=== PATIENT | female | born 1960 | race Caucasian/White ===

== ENCOUNTER 2017-11-15 10:43 | Observation (INO) | payer BC, SELFPAY ==
[2017-11-15] VITALS (9 sets, daily range): BP systolic 120–137; BP diastolic 69–87; PULSE 67–90; RESP 14–25; TEMP 36.4–36.8; O2SAT 97–99; BMI 22.4; BMI 22.5
--- NOTE | 2017-11-15 11:01 | CT_ITS ---
STUDY: CT BRAIN WITHOUT CONTRAST REASON FOR EXAM: Female, 57 years old. DIZZINESS AND VOMITING RADIATION DOSAGE (If Supplied By Facility): CTDIvol = ( 44.99 ) mGy, DLP = ( 762.36 ) mGycm TECHNIQUE: Transaxial CT imaging of the brain was performed without administration of intravenous contrast material. Individualized dose optimization techniques were used for this CT. COMPARISON: None. FINDINGS: Normal soft tissue structures. Normal calvarium. Normal size ventricles and extra-axial spaces for the patient's age. There are areas of decreased attenuation within the white matter tracts of the supratentorial brain, consistent with microvascular disease changes. Normal basal ganglia and thalami. Normal brainstem. Normal cerebellum. There is no intracranial hemorrhage. There are no findings of an acute ischemic infarction. Normal visualized paranasal sinuses. CT/Brain/Head without Contrast IMPRESSION: No acute intracranial abnormality. Electronically Signed: Devyn Newby MD at 11:52 EST Tel , Service support ,
--- NOTE | 2017-11-15 11:02 | EKG12_ITS ---
Test Reason : SYNCOPE Blood Pressure : / mmHG Vent. Rate : 072 BPM Atrial Rate : 072 BPM P-R Int : 140 ms QRS Dur : 090 ms QT Int : 436 ms P-R-T Axes : 064 076 069 degrees QTc Int : 477 ms Normal sinus rhythm Nonspecific ST segment abnormality Confirmed by ANDIE DWYER, DELMAR ([id number]), editor school photograph KONRAD MOTA ([id number]) on 11/17/2017 1:31:58 PM Referred By: MISTI
--- NOTE | 2017-11-15 11:05 | ED.DCSUM_ITS ---
- ER Visit Summary Date of Service: 11/15/17 Chief Complaint: Vertigo History of Present Illness: The patient is a 57 F presenting with vertigo. She states that when she woke this morning she had a spinning sensation. When she turned over in bed and stood up it worsened. She feels off balance. She has nausea. She denies any numbness or weakness. Denies any vision or speech changes. Denies chest pain or shortness of breath. Denies fever. She denies other complaints. Physical Examination: Vitals are stable. Patient is afebrile. Alert no acute distress. HEENT exam is unremarkable. Neck is supple. Lungs are clear and equal bilaterally. Heart is regular rate and rhythm. Abdomen is soft nontender nondistended. Extremities are unremarkable. Skin is warm and dry. No focal neurologic deficit. Remainder of exam is unremarkable. Emergency Department Course and Treatment: She was given IV fluids, Zofran, meclizine. EKG is sinus rhythm rate of 72. CT head shows no acute process. CBC, chemistries unremarkable other than potassium 3.3, glucose 148. Troponin is negative. She continues to have vertigo. She is given Valium. She has some improvement but is still unable to sit or stand. Discussed with the hospitalist for observation. Disposition: Observation Impression: Intractable vertigo This note was generated with [employer] dictation software. It may contain incorrect words, spelling, and punctuation that were not noted in review of the chart prior to signing ED Disposition - Plan for ED Patient: Chief Complaint: Dizziness Referrals: NOT,DEFINED [NON-STAFF] -
[2017-11-15 11:21] LABS: Absolute Lymphocyte Count 0.67 X10^3/ul (0.83-4.51); Absolute Neutrophil Count 6.3 X10^3/uL (2.0-7.7); Basophil# 0.02 X10^3/uL; Basophil% 0.3 % (0-1); Eosinophil# 0.01 X10^3/uL; Eosinophils% 0.1 % (0-5); Hematocrit 38.3 % (37-47); Hemoglobin 13.2 g/dl (12.0-15.0); Lymphocyte # 0.67 X10^3/ul (4.0); Lymphocyte % 9.3 % (19-41); Mean Corp Hgb Conc 34.5 g/gl (32-36); Mean Corpuscular Hgb 31.4 pg (27.0-32.0); Mean Platelet Vol. 10.3 fl (6.2-12.0); Monocyte# 0.17 X10^3/uL; Monocyte% 2.4 % (0-10); Neutrophil % 87.8 % (47-70); Platelet Count 199 K/mm3 (150-450); RBC Distribution Width CV 11.8 % (11.6-14.6); RBC Distribution Width SD 38.5 fl (35.1-43.9); Red Blood Count 4.21 M/mm3 (4.2-5.4); White Blood Count 7.2 K/mm3 (4.4-11.0)
[2017-11-15 11:36] LABS: Anion Gap 6 (5-15); BUN 14 mg/dL (7-18); Calcium,Total 8.4 mg/dL (8.5-10.1); Chloride 107 mmol/L (98-107); EST Glomerular Filtration Rate 92 mL/min (>60); Est Glom Filt Rate - Afr Amer 111 mL/min (>60); Estimated Creatinine Clearance 70.98 ml/min; Glucose 148 mg/dL (74-106); Potassium 3.3 mmol/L (3.5-5.1); Sodium Level 139 mmol/L (136-145)
[2017-11-15 11:37] LABS: POSITIVE COUNT NO; POSITIVE DIFFERENTIAL NO; POSITIVE MORPHOLOGY NO
[2017-11-15] MEDS: 0.9% Normal Saline 1,000 ML 1000 ML IV (11:47)
[2017-11-15] MEDS: Ondansetron 4 MG/2 ML Vial IV (11:47)
[2017-11-15] MEDS: Meclizine 12.5 MG Tablet 25 MG PO (12:05)
[2017-11-15] MEDS: diazePAM 5 MG Tablet PO (14:37)
--- NOTE | 2017-11-15 16:23 | HP.PCM_ITS ---
History of Present Illness The patient is a 57 year old F [] Past Medical History Allergies No Known Allergies Allergy (Verified 11/15/17 10:48) Home Medications: Ambulatory Orders Medication Instructions Recorded NK [NK] 11/15/17 Smoking Status: Never smoker - Physical Exam Vital Signs Temp Pulse Resp BP Pulse Ox 97.5 F L 79 25 H 133/77 H 99 11/15/17 10:45 11/15/17 15:24 11/15/17 15:24 11/15/17 15:24 11/15/17 15:24 Oxygen Delivery Method Room Air Weight: 55.792 kg Body Mass Index (BMI) 22.4 Laboratory Tests Past 24 Hrs 11/15/17 11/15/17 11:10 11:10 WBC 7.2 RBC 4.21 Hgb 13.2 Hct 38.3 MCV 91.0 MCH 31.4 MCHC 34.5 RDW 11.8 RDW Differential 38.5 Plt Count 199 MPV 10.3 Immature Gran % (Auto) 0.100 Neut % (Auto) 87.8 H Lymph % (Auto) 9.3 L [place] % (Auto) 2.4 Eos % (Auto) 0.1 Baso % (Auto) 0.3 Absolute Neuts (auto) 6.3 Absolute Lymphs (auto) 0.67 L Total Counted Not Reportable Sodium 139 Potassium 3.3 L Chloride 107 Carbon Dioxide 26.0 Anion Gap 6 BUN 14 Creatinine 0.70 Estim Creat Clear Calc 70.98 Est GFR (MDRD) Af Amer 111 Est GFR (MDRD) Non-Af 92 BUN/Creatinine Ratio 20.0 Glucose 148 H Calcium 8.4 L Troponin I < 0.02
--- NOTE | 2017-11-15 16:33 | PCM.HP.STD ---
<Lubna Merrill - Last Filed: 11/15/17 17:22> Problem List (1) Vertigo Status: Acute History of Present Illness Date of Admission: 11/15/17 Chief Complaint: Vertigo The patient is a 57 year old F who presents to the emergency room with vertigo. Patient states she woke up this morning with dizziness, feeling of room spinning which is worse with movement, and nausea which is associated with episodes of dizziness. She denies chest pain, shortness of breath. Denies numbness, tingling, focal weakness. Denies vision changes. Patient has not had a similar episode in the past. She denies any previous medical history. She does not take any daily medications. Patient states vertigo is greatly increased with movement and closing eyes. Patient states when her eyes are closed she feels like the room is spinning. She is fairly comfortable at rest and vertigo is able to be reproduced on assessment with movement of patient. Patient denies recent illness. Patient states her dizziness is so significant that she is not able to ambulate without feeling like she is going to fall over. Denies other associated complaints. 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 Denies: Abdominal Pain, Constipation, Diarrhea, Vomiting Genitourinary: Denies: Dysuria Musculoskeletal: Denies: Joint Pain, Joint Tenderness Skin: Denies: Rash, Wounds Neurological: Reports: Balance problems, - - Vertigo. Denies: Blurred vision, Change in Speech, Focal weakness, Numbness, Tingling Psychiatric: Denies: Anxiety, Depression, Homicidal Ideations, Suicidal Ideations Hematologic/ Lymphatic: Denies: Easy Bruising, Easy Bleeding VTE Information - Inpt Only VTE Present on Admission: No VTE Mechan Device Prophylaxis: None VTE Pharm Prophylaxis ordered?: Yes Patient Problems: Active and Suspected Problems Vertigo (Acute) - Physical Exam General: Alert, Oriented x3, Cooperative, No apparent distress HEENT: Atraumatic, PERRLA, EOMI, Normocephalic Neck: Supple, No JVD, Negative Carotid Bruits Lungs: Clear to auscultation, Normal air movement Cardiovascular: Regular rate, Regular Rhythm, Normal S1, Normal S2, No murmurs Abdomen: Bowel Sounds Present, Soft, Non Tender, Non-Distended Extremities: No clubbing, No cyanosis, No edema, Capillary Refill Less than 3 Seconds Skin: No rashes, No breakdown Musculoskeletal: No Tenderness to Palpation of Joints or Extremities Neurological: Cranial nerves II-XII grossly intact, Neuro grossly intact, - - Vertigo, reproducible with movement Psych/Mental Status: Normal Affect, Appropriate Vital Signs Temp Pulse Resp BP Pulse Ox 97.5 F L 79 25 H 133/77 H 99 11/15/17 10:45 11/15/17 15:24 11/15/17 15:24 11/15/17 15:24 11/15/17 15:24 Oxygen Delivery Method Room Air Weight: 55.792 kg Body Mass Index (BMI) 22.4 Laboratory Tests Past 24 Hrs 11/15/17 11/15/17 11:10 11:10 WBC 7.2 RBC 4.21 Hgb 13.2 Hct 38.3 MCV 91.0 MCH 31.4 MCHC 34.5 RDW 11.8 RDW Differential 38.5 Plt Count 199 MPV 10.3 Immature Gran % (Auto) 0.100 Neut % (Auto) 87.8 H Lymph % (Auto) 9.3 L [place] % (Auto) 2.4 Eos % (Auto) 0.1 Baso % (Auto) 0.3 Absolute Neuts (auto) 6.3 Absolute Lymphs (auto) 0.67 L Total Counted Not Reportable Sodium 139 Potassium 3.3 L Chloride 107 Carbon Dioxide 26.0 Anion Gap 6 BUN 14 Creatinine 0.70 Estim Creat Clear Calc 70.98 Est GFR (MDRD) Af Amer 111 Est GFR (MDRD) Non-Af 92 BUN/Creatinine Ratio 20.0 Glucose 148 H Calcium 8.4 L Troponin I < 0.02 Assessment/Plan Active and Suspected Problems Vertigo (Acute) 1. Acute vertigo- Brain CT unremarkable. EKG in emergency room sinus rhythm. Potassium 3.3. Lab work otherwise remarkable. Troponin negative ?1. Patient received Valium in the ER with some improvement. Neuro assessment grossly intact. Vertigo is reproducible with movement. Fall precautions. PT/OT. Zofran as needed for nausea. Antivert 25 mg p.o. 4 times daily as needed for vertigo symptoms. Ativan 0.5 mg p.o. every 8 hours as needed for dizziness. Recommend outpatient follow-up with ENT at discharge. 2. Hypokalemia, mild-replaced orally. Monitor BMP. DVT prophylaxis-Lovenox subcu. This patient was seen by KIMI London under the supervision of Dr. Dsouza. <Laura Dsouza - Last Filed: 11/15/17 21:23> Problem List (1) Vertigo Status: Acute History of Present Illness The patient is a 57 year old F [] Past Medical History Allergies No Known Allergies Allergy (Verified 11/15/17 10:48) - Physical Exam Vital Signs Temp Pulse Resp BP Pulse Ox 98.2 F 79 16 120/69 98 11/15/17 20:00 11/15/17 20:00 11/15/17 20:00 11/15/17 20:00 11/15/17 20:00 Oxygen Delivery Method Room Air Weight: 57.47 kg Body Mass Index (BMI) 22.4 Intake and Output for Last 24 Hours 11/13/17 11/14/17 11/15/17 23:59 23:59 23:59 Output Total 440 / 440 Balance -440 / -440 Assessment/Plan Seen and examined independently of nurse practitioner, Lubna Merrill. History and physical exam, assessment and plan as above in her note. Comes in with complaints of dizziness that started suddenly at 6 AM. No previous history of this. No new medications or any medical problems. Says her gait was unsteady. Denied any dizziness or palpitations or chest pain or fever or chills. Vitals reviewed in the ED was normal. Labs were unremarkable except for hypokalemia, which has been replaced. Focal neurological deficit is seen on physical exam, no nystagmus. Admits to improvement with meclizine, cannot do MRI of the brain because of history of stents in the fallopian tube. Will get CTA of the head and neck, neurology consult, continue on medication, PT./OT to evaluate and teach patient vestibular exercises, in the morning, continue on gentle fluids, check vitals in the morning Code Visit Inpatient E&M: 26104 Init Hosp L3
--- NOTE | 2017-11-15 17:02 | NURSING ---
Lubna MA is seeing pt in room now.
[2017-11-15] MEDS: 0.9% NaCl Peripheral Flush Adult/Peds IV (18:27)
[2017-11-15] MEDS: 0.9% Normal Saline 1,000 ML 125 ML IV (18:28)
[2017-11-16 02:00] VITALS: BP 127/83; PULSE 77; RESP 16; TEMP 36.4; O2SAT 96
[2017-11-16] MEDS: 0.9% Normal Saline 1,000 ML 100 ML IV ×2 (02:12→10:29)
--- NOTE | 2017-11-16 05:55 | CT_ITS ---
STUDY: CTA NECK WITH CONTRAST REASON FOR EXAM: Female, 57 years old. DIZINESS AND NAUSEA,UNSTEADY GAIT,VERTIGO RADIATION DOSAGE (If Supplied By Facility): CTDIvol = ( 25.95 ) mGy, DLP = ( 1364.86 ) mGycm TECHNIQUE: CT angiography with multi-detector data acquisition was performed from the aortic arch to the skull base following intravenous administration of 100 ml of Isovue 370 contrast. MIP images were reconstructed from the axial data set. Post-processing of the angiographic images was performed, with multiplanar reformation and 3D reconstruction. Individualized dose optimization techniques were used for this CT. COMPARISON: None. FINDINGS: AORTIC ARCH: Normal visualized aortic arch. Normal origins of the brachiocephalic, left common carotid, and left subclavian arteries. RIGHT CAROTID ARTERIES: Normal right common carotid artery (CCA). Normal right common carotid bulb. Normal origin of the right internal carotid (ICA) artery without a hemodynamically significant stenosis. Normal visualized cervical portion of the right internal carotid artery. Normal origin of the right external carotid artery (ECA). LEFT CAROTID ARTERIES: Normal left common carotid artery (CCA). There is mild atherosclerotic plaque formation with minimal narrowing of the left carotid bulb. There is mild atherosclerotic plaque formation of the origin of the left internal carotid artery with less than 50% cross sectional diameter stenosis. There is atherosclerotic tortuous elongation of the cervical portion of the left internal carotid artery. Normal origin of the left external carotid artery (ECA). VERTEBRAL ARTERIES: There is enhancement within the bilateral vertebral arteries with a small left vertebral artery, and a dominant right vertebral artery. CT/CTA Neck W/WO Contrast IMPRESSION: No occlusion or significant stenosis. Mild atherosclerotic plaque. Electronically Signed: Devyn Newby MD at 8:30 EST Tel , Service support ,
--- NOTE | 2017-11-16 05:55 | CT_ITS ---
STUDY: CTA OF THE BRAIN REASON FOR EXAM: Female, 57 years old. DIZINESS AND NAUSEA,UNSTEADY GAI, VERTIGO. RADIATION DOSAGE (If Supplied By Facility): CTDIvol = ( 25.95 ) mGy, DLP = ( 1364.86 ) mGycm TECHNIQUE: CT angiography was performed with a multi-detector CT scanner. Data acquisition was obtained from the skull base through the vertex following intravenous administration of ml of . MIP images were reconstructed from the axial data set. Post-processing of the angiographic images was performed, with multiplanar reformation and 3D reconstruction. Individualized dose optimization techniques were used for this CT. COMPARISON: None. FINDINGS: Normal bilateral petrous carotid arteries. There is calcified plaque formation of the right cavernous carotid artery, without a cross-sectional luminal stenosis. There is calcified plaque formation of the left cavernous carotid artery, without a cross-sectional luminal stenosis. Normal right A1 segments of the anterior cerebral artery. Normal left A1 segments of the anterior cerebral artery. Normal intact anterior communicating artery (ACOM). Normal bilateral A2 segments of the anterior cerebral arteries. Normal right M1 and M2 segments of the middle cerebral arteries, with a normal M1 bifurcation. Normal left M1 and M2 segments of the middle cerebral arteries, with a normal M1 bifurcation. There is non-visualization of the right posterior communicating artery (PCOM). There is non-visualization of the left posterior communicating artery (PCOM). There is a small atretic left vertebral artery with a dominant right vertebral artery. Normal basilar artery with a normal basilar bifurcation. The visualized bilateral superior cerebellar (SCA) arteries are normal. Normal bilateral P1, P2 and visualized P3 segments of the posterior cerebral arteries. There is no demonstrated aneurysm of the [place]. There is no demonstrated abnormality of the visualized brain. CT/CTA Head W/WO Contrast IMPRESSION: Normal [place] without a demonstrated aneurysm or hemodynamically significant stenosis. Electronically Signed: Devyn Newby MD at 8:32 EST Tel , Service support ,
[2017-11-16 06:36] LABS: Absolute Lymphocyte Count 1.56 X10^3/ul (0.83-4.51); Absolute Neutrophil Count 3.2 X10^3/uL (2.0-7.7); Basophil# 0.01 X10^3/uL; Basophil% 0.2 % (0-1); Eosinophil# 0.05 X10^3/uL; Hematocrit 39.3 % (37-47); Hemoglobin 12.7 g/dl (12.0-15.0); Lymphocyte # 1.56 X10^3/ul (4.0); Lymphocyte % 30.1 % (19-41); Mean Corp Hgb Conc 32.3 g/gl (32-36); Mean Corpuscular Hgb 30.2 pg (27.0-32.0); Mean Corpuscular Volume 93.3 fL (81-99); Mean Platelet Vol. 10.3 fl (6.2-12.0); Monocyte# 0.39 X10^3/uL; Monocyte% 7.5 % (0-10); Neutrophil # 3.17 X10^3/uL (2.7-7.7); Neutrophil % 61.2 % (47-70); Platelet Count 212 K/mm3 (150-450); RBC Distribution Width CV 12.5 % (11.6-14.6); Red Blood Count 4.21 M/mm3 (4.2-5.4); White Blood Count 5.2 K/mm3 (4.4-11.0)
[2017-11-16 06:46] LABS: POSITIVE COUNT NO; POSITIVE DIFFERENTIAL NO; POSITIVE MORPHOLOGY NO
[2017-11-16 06:55] LABS: Anion Gap 8 (5-15); BUN 9 mg/dL (7-18); BUN/Creat Ratio 12.6 RATIO (10-20); Calcium,Total 8.3 mg/dL (8.5-10.1); Chloride 107 mmol/L (98-107); Creatinine, Serum 0.72 mg/dL (0.55-1.02); EST Glomerular Filtration Rate 90 mL/min (>60); Est Glom Filt Rate - Afr Amer 108 mL/min (>60); Estimated Creatinine Clearance 72.17 ml/min; Glucose 87 mg/dL (74-106); Potassium 3.9 mmol/L (3.5-5.1); Sodium Level 139 mmol/L (136-145)
[2017-11-16 07:31] VITALS: BP 157/88; PULSE 69; RESP 18; TEMP 36.2; O2SAT 96
[2017-11-16] MEDS: Meclizine HCl 25 MG Tablet PO (07:45)
[2017-11-16] MEDS: Enoxaparin 40 MG/0.4 ML Syringe SC (09:23)
[2017-11-16] MEDS: Ondansetron 4 MG/2 ML Vial IV (10:22)
[2017-11-16] MEDS: LORazepam 0.5 MG Tablet PO (10:22)
[2017-11-16] MEDS: 0.9% NaCl Peripheral Flush Adult/Peds IV ×2 (10:22→15:02)
--- NOTE | 2017-11-16 11:18 | PCM.CONS.GEN ---
Reason for Consult Date of Consultation: 11/16/17 Reason for Consultation: vertigo History of Present Illness: The patient is a 57 year old right handed white female awoke feeling ok 630 yesterday am, as soon as she stood up she felt profoundly vertiginous, nausea and vomiting, now improved but still feels poorly, worse when turns head to left, but not with eye only movements. no focal weakness, no similar events in the past, healthy on no meds at home. pt attempted darius today but she became acutely nauseated. 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 Smoking Status: Never smoker Alcohol: None Drugs: None - *Family History Maternal History Items: Cancer - Colon Paternal History Items: Cancer - Liver Review of Systems Constitutional: Denies: Chills, Fever, Weight Change HEENT: Denies: Head Aches, Sinus Congestion, Sinus Drainage Cardiovascular: Denies: Chest Pain, Palpitations Respiratory: Denies: Cough, Shortness of breath at rest, Sputum production Gastrointestinal: Denies: Abdominal Pain, Nausea, Vomiting Genitourinary: Denies: Dysuria Musculoskeletal: Denies: Joint Pain, Joint Tenderness Skin: Denies: Rash, Wounds Neurological: Denies: Numbness, Tingling, Focal weakness Psychiatric: Denies: Anxiety, Depression, Homicidal Ideations, Suicidal Ideations Hematologic/ Lymphatic: Denies: Easy Bruising, Easy Bleeding Patient Problems: Active and Suspected Problems Vertigo (Acute) - Physical Exam General: Alert, Oriented x3, Cooperative HEENT: Atraumatic, PERRLA, EOMI, Normocephalic Neck: Supple, No JVD, Negative Carotid Bruits Lungs: Clear to auscultation, Normal air movement Cardiovascular: Regular rate, No murmurs Abdomen: Bowel Sounds Present, Soft, Non Tender Extremities: No edema, Capillary Refill Less than 3 Seconds Skin: No rashes, No breakdown Musculoskeletal: No Tenderness to Palpation of Joints or Extremities Neurological: Cranial nerves II-XII grossly intact Psych/Mental Status: Normal Affect, Appropriate Vital Signs Temp Pulse Resp BP Pulse Ox 36.2 C L 69 18 157/88 H 96 11/16/17 07:31 11/16/17 07:31 11/16/17 07:31 11/16/17 07:31 11/16/17 07:31 Oxygen Delivery Method Room Air Weight: 57.47 kg Body Mass Index (BMI) 22.4 Intake and Output for Last 24 Hours 11/14/17 11/15/17 11/16/17 23:59 23:59 23:59 Intake Total 1740 / 1740 Output Total 440 / 440 1150 / 1150 Balance -440 / -440 590 / 590 Laboratory Tests Past 24 Hrs 11/16/17 11/16/17 06:06 06:06 WBC 5.2 RBC 4.21 Hgb 12.7 Hct 39.3 MCV 93.3 MCH 30.2 MCHC 32.3 RDW 12.5 RDW Differential 42.0 Plt Count 212 MPV 10.3 Immature Gran % (Auto) 0.000 Neut % (Auto) 61.2 Lymph % (Auto) 30.1 [place] % (Auto) 7.5 Eos % (Auto) 1.0 Baso % (Auto) 0.2 Absolute Neuts (auto) 3.2 Absolute Lymphs (auto) 1.56 Total Counted Not Reportable Sodium 139 Potassium 3.9 Chloride 107 Carbon Dioxide 24.0 Anion Gap 8 BUN 9 Creatinine 0.72 Estim Creat Clear Calc 72.17 Est GFR (MDRD) Af Amer 108 Est GFR (MDRD) Non-Af 90 BUN/Creatinine Ratio 12.6 Glucose 87 Calcium 8.3 L Assessment/Plan Active and Suspected Problems Vertigo (Acute) BPPV mri prn antiemetics ambulate when able
--- NOTE | 2017-11-16 11:23 | MRI_ITS ---
STUDY: MRI BRAIN WITH AND WITHOUT CONTRAST REASON FOR EXAM: Female, 57 years old. Vertigo TECHNIQUE: Standardized multiplanar fat and water weighted pulse sequences were obtained. 6 ml of Gadavist contrast material was administered intravenously for the contrast portion of the examination. COMPARISON: CT of the brain on November 15 2017 FINDINGS: Normal size of the ventricles and extra-axial spaces for the patient's age. Moderate periventricular white matter ischemic changes without mass effect or restricted diffusion.. Normal bilateral basal ganglia. Normal thalami. There is no extra-axial fluid accumulation. Normal flow voids within the major intracranial circulation suggesting patency by spin echo criteria. Normal venous enhancement. There is no enhancing intra-axial or extra-axial abnormality. Normal sella turcica, pituitary gland, infundibular stalk, optic chiasm and hypothalamus. Normal tectal plate and pineal gland. Normal midbrain, jessenia and medulla. Normal cerebellum. Normal basal cisterns. Normal bilateral temporal bones. Normal bilateral internal auditory canals. No demonstrated orbital abnormality, within the constraints of a routine brain study. Minor mucosal thickening of the ethmoid air cells.. Normal calvarium and skull base. Normal visualized soft tissue structures. Normal visualized upper cervical spine. MRI/Brain W/WO Contrast IMPRESSION: Moderate periventricular white matter ischemic changes without evidence for acute infarct. No abnormal enhancing lesion. Specifically, no evidence for acoustic or vestibular schwannoma Electronically Signed: Yogi Herzog MD at 18:55 EST , Service support ,
--- NOTE | 2017-11-16 11:26 | CON.PCM_ITS ---
Reason for Consult Date of Consultation: 11/16/17 Reason for Consultation: vertigo History of Present Illness: The patient is a 57 year old right handed white female awoke feeling ok 630 yesterday am, as soon as she stood up she felt profoundly vertiginous, nausea and vomiting, now improved but still feels poorly, worse when turns head to left , but not with eye only movements. no focal weakness, no similar events in the past, healthy on no meds at home. pt attempted darius today but she became acutely nauseated. 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 Smoking Status: Never smoker Alcohol: None Drugs: None - *Family History Maternal History Items: Cancer - Colon Paternal History Items: Cancer - Liver Review of Systems Constitutional: Denies: Chills, Fever, Weight Change HEENT: Denies: Head Aches, Sinus Congestion, Sinus Drainage Cardiovascular: Denies: Chest Pain, Palpitations Respiratory: Denies: Cough, Shortness of breath at rest, Sputum production Gastrointestinal: Denies: Abdominal Pain, Nausea, Vomiting Genitourinary: Denies: Dysuria Musculoskeletal: Denies: Joint Pain, Joint Tenderness Skin: Denies: Rash, Wounds Neurological: Denies: Numbness, Tingling, Focal weakness Psychiatric: Denies: Anxiety, Depression, Homicidal Ideations, Suicidal Ideations Hematologic/ Lymphatic: Denies: Easy Bruising, Easy Bleeding Patient Problems: Active and Suspected Problems Vertigo (Acute) - Physical Exam General: Alert, Oriented x3, Cooperative HEENT: Atraumatic, PERRLA, EOMI, Normocephalic Neck: Supple, No JVD, Negative Carotid Bruits Lungs: Clear to auscultation, Normal air movement Cardiovascular: Regular rate, No murmurs Abdomen: Bowel Sounds Present, Soft, Non Tender Extremities: No edema, Capillary Refill Less than 3 Seconds Skin: No rashes, No breakdown Musculoskeletal: No Tenderness to Palpation of Joints or Extremities Neurological: Cranial nerves II-XII grossly intact Psych/Mental Status: Normal Affect, Appropriate Vital Signs Temp Pulse Resp BP Pulse Ox 36.2 C L 69 18 157/88 H 96 11/16/17 07:31 11/16/17 07:31 11/16/17 07:31 11/16/17 07:31 11/16/17 07:31 Oxygen Delivery Method Room Air Weight: 57.47 kg Body Mass Index (BMI) 22.4 Intake and Output for Last 24 Hours 11/14/17 11/15/17 11/16/17 23:59 23:59 23:59 Intake Total 1740 / 1740 Output Total 440 / 440 1150 / 1150 Balance -440 / -440 590 / 590 Laboratory Tests Past 24 Hrs 11/16/17 11/16/17 06:06 06:06 WBC 5.2 RBC 4.21 Hgb 12.7 Hct 39.3 MCV 93.3 MCH 30.2 MCHC 32.3 RDW 12.5 RDW Differential 42.0 Plt Count 212 MPV 10.3 Immature Gran % (Auto) 0.000 Neut % (Auto) 61.2 Lymph % (Auto) 30.1 [place] % (Auto) 7.5 Eos % (Auto) 1.0 Baso % (Auto) 0.2 Absolute Neuts (auto) 3.2 Absolute Lymphs (auto) 1.56 Total Counted Not Reportable Sodium 139 Potassium 3.9 Chloride 107 Carbon Dioxide 24.0 Anion Gap 8 BUN 9 Creatinine 0.72 Estim Creat Clear Calc 72.17 Est GFR (MDRD) Af Amer 108 Est GFR (MDRD) Non-Af 90 BUN/Creatinine Ratio 12.6 Glucose 87 Calcium 8.3 L Assessment/Plan Active and Suspected Problems Vertigo (Acute) BPPV mri prn antiemetics ambulate when able
[2017-11-16 15:02] VITALS: BP 133/84; PULSE 82; RESP 18; TEMP 36.6; O2SAT 95
--- NOTE | 2017-11-16 16:37 | PN_ITS ---
Patient Problems: Active and Suspected Problems Vertigo (Acute) Subjective: CC: Dizziness Presented with significant dizziness, CT scan of the brain was unremarkable, symptoms have improved and she supposed to get an MRI done today. Vitals/I&O's: Vital Signs Temp Pulse Resp BP Pulse Ox 97.9 F 82 18 133/84 H 95 11/16/17 15:02 11/16/17 15:02 11/16/17 15:02 11/16/17 15:02 11/16/17 15:02 Oxygen Delivery Method Room Air Weight: 57.47 kg Body Mass Index (BMI) 22.4 Intake and Output for Last 24 Hours 11/14/17 11/15/17 11/16/17 23:59 23:59 23:59 Intake Total 2850 / 2850 Output Total 440 / 440 2125 / 2125 Balance -440 / -440 725 / 725 General: Alert, Oriented x3 Neck: Supple Lungs: Clear to auscultation Cardiovascular: Regular rate, Normal S1, Normal S2 Neurological: Cranial nerves II-XII grossly intact, Deep Tendon Reflexes 2+/4 and Symmetrical, Motor Exam 5/5 strength throughout Psych/Mental Status: Normal Affect Laboratory Results 11/16/17 06:06: WBC 5.2, RBC 4.21, Hgb 12.7, Hct 39.3, MCV 93.3, MCH 30.2, MCHC 32.3, RDW 12.5, RDW Differential 42.0, Plt Count 212, MPV 10.3, Immature Gran % (Auto) 0.000, Neut % (Auto) 61.2, Lymph % (Auto) 30.1, [place] % (Auto) 7.5, Eos % (Auto) 1.0, Baso % (Auto) 0.2, Absolute Neuts (auto) 3.2, Absolute Lymphs (auto ) 1.56, Total Counted Not Reportable 11/16/17 06:06: Sodium 139, Potassium 3.9, Chloride 107, Carbon Dioxide 24.0, Anion Gap 8, BUN 9, Creatinine 0.72, Estim Creat Clear Calc 72.17, Est GFR (MDRD ) Af Amer 108, Est GFR (MDRD) Non-Af 90, BUN/Creatinine Ratio 12.6, Glucose 87, Calcium 8.3 L Current Medications Acetaminophen (Tylenol) 650 mg PO Q6H PRN PRN PRN Reason: PAIN Acetaminophen (Tylenol) 650 mg PO Q6H PRN PRN PRN Reason: HEADACHE Bisacodyl (Dulcolax) 5 mg PO DAILY PRN PRN PRN Reason: Constipation Enoxaparin Sodium (Lovenox) 40 mg SC DAILY@1000 AGGIE Last Admin: 11/16/17 09:23 Dose: 40 mg Sodium Chloride () 1,000 mls @ 100 mls/hr IV .Q10H AGGIE Stop: 11/16/17 17:19 Last Admin: 11/16/17 10:29 Dose: 100 mls/hr Lorazepam (Ativan) 0.5 mg PO Q8H PRN PRN PRN Reason: DIZZINESS Last Admin: 11/16/17 10:22 Dose: 0.5 mg Magnesium Hydroxide (Milk Of Magnesia) 30 ml PO DAILY PRN PRN PRN Reason: Constipation Meclizine HCl (Antivert) 25 mg PO BID PRN PRN PRN Reason: Vertigo Last Admin: 11/16/17 07:45 Dose: 25 mg Ondansetron HCl (Zofran) 4 mg IV Q8H PRN PRN PRN Reason: NAUSEA Last Admin: 11/16/17 10:22 Dose: 4 mg Psyllium Hydrophilic Mucilloid (Metamucil) 1 packet PO DAILY PRN PRN PRN Reason: CONSTIPATION Sodium Chloride () 5 - 30 ml IV UD PRN PRN Reason: SALINE FLUSH Last Admin: 11/16/17 15:02 Dose: 10 ml Assessment/Plan Active and Suspected Problems Vertigo (Acute) 1. Vertigo, likely PBPV, she is to obtain MRI of the brain today. 2. hypokalemia; replace with KCl as needed. 3. DVT prophylaxis with Lovenox. 4. discharge planning Code Visit Inpatient E&M: 25005 Subs Hosp L2
[2017-11-16 21:05] VITALS: BP 138/89; PULSE 71; RESP 18; TEMP 36.9; O2SAT 100
[2017-11-17 03:30] VITALS: BP 117/75; PULSE 71; RESP 16; TEMP 36.8; O2SAT 98
[2017-11-17 09:18] VITALS: BP 132/75; PULSE 70; RESP 16; TEMP 36.7; O2SAT 96
[2017-11-17] MEDS: Enoxaparin 40 MG/0.4 ML Syringe SC (09:28)
--- NOTE | 2017-11-17 11:33 | PCM.DC ---
- Discharge Diagnoses Current Active Problems: Current Active and Chronic Problems Vertigo (Acute) You will use the following diet at home:: Regular Discharge Activity: Return to Normal Activity Allergies/Adverse Reactions: Allergies No Known Allergies Allergy (Verified 11/15/17 10:48) Medications to take at Discharge Meclizine HCl [Antivert] 25 mg PO BID PRN PRN #20 tab 11/17/17 The following prescriptions were given: Meclizine HCl [Antivert] 25 mg PO BID PRN PRN #20 tab PRN Reason: Vertigo Primary Care Physician: NOT,DEFINED [NON-STAFF] - Within 2 Weeks Proposed Discharge Date: 11/17/17
--- NOTE | 2017-11-17 11:34 | PCM.DC.SUM ---
Discharge Date and Diagnosis Date of Admission: 11/15/17 Date of Discharge: 11/17/17 - Primary Discharge Diagnosis Active and Suspected Problems Vertigo (Acute) Hospital Course and Treatment Summary of Care Provided: The patient is a 57 year old F dated to the emergency room with severe vertigo, CT scan of the brain was nonacute the patient was admitted to the hospital and place him on as needed meclizine. Neurology was consulted and MRI of the brain was obtained and acute. She was diagnosed with PBPV , the patient improved with vestibular exercises and as needed meclizine. she was Discharged home in a stable condition symptom-free. Exam at the time of discharge; vital signs were stable. He was alert and oriented to time place and person. He did not appear to be any form of distress. S1 and S2 heard no murmur or gallop Lung exam was clear to auscultation with no adventitious sounds. Abdomen was soft nontender with normal bowel sounds. extremity exam did not reveal any edema, palpable pulses bilaterally. Neurologic exam was grossly intact. Discharge Diet: No Restrictions Discharge Activity: Return to Normal Activity Home Medications: Medications to take at Discharge Meclizine HCl [Antivert] 25 mg PO BID PRN PRN #20 tab 11/17/17 Following Prescrptions Were Given to Patient: Meclizine HCl [Antivert] 25 mg PO BID PRN PRN #20 tab PRN Reason: Vertigo Primary Care Physician: NOT,DEFINED [NON-STAFF] - Within 2 Weeks Disposition: Home Patient Condition:: Good Meaningful Use Info Meaningful Use Diagnoses (Choose all that apply): None applicable Code Visit OBSV E&M: 37742 Observation care discharge
[2017-11-17] MEDS: Meclizine HCl 25 MG Tablet PO (14:11)
[2017-11-17 14:46] VITALS: BP 142/81; PULSE 64; RESP 18; TEMP 36.7; O2SAT 99
== END 2017-11-17 14:46 | disposition home or self-care (01) ==
LOC: ED 13:48 → MS3 16:35
PROVIDERS: Admitting Provider Internal Medicine; Emergency Provider Emergency Medicine; Visit Provider Internal Medicine
DX: R42 Dizziness and giddiness (principal); E87.6 Hypokalemia; R11.2 Nausea with vomiting, unspecified
CPT/HCPCS: 36415; 70450; 70496; 70498; 70553; 80048; 84484; 85025; 93005; 96361; 96372; 96374; 96376; 97116; 97162; 97166; 99218; 99284; A9585; J7030; Q9967; A4216; G0378; J2405

== ENCOUNTER 2018-05-01 21:46 | Observation (INO) | payer BC, SELFPAY ==
[2018-05-01 21:47] VITALS: BP 167/78; PULSE 72; RESP 16; TEMP 36.8; O2SAT 98; BMI 22.1
--- NOTE | 2018-05-01 22:00 | EKG12_ITS ---
Test Reason : Blood Pressure : / mmHG Vent. Rate : 076 BPM Atrial Rate : 076 BPM P-R Int : 136 ms QRS Dur : 082 ms QT Int : 434 ms P-R-T Axes : 071 061 070 degrees QTc Int : 488 ms Normal sinus rhythm Nonspecific ST abnormality Prolonged QT Abnormal ECG Confirmed by ANDIE DWYER, DELMAR ([id number]), online editor KONRAD MOTA ([id number]) on 05/04/2018 10:53:10 AM Referred By: CHRISTO Confirmed By:DELMAR CHAVES MD
--- NOTE | 2018-05-01 22:00 | CT_ITS ---
STUDY: CT BRAIN WITHOUT CONTRAST REASON FOR EXAM: Female, 58 years old. Confusion and memory loss RADIATION DOSAGE (If Supplied By Facility): CTDIvol = ( 44.99 ) mGy, DLP = ( 779.24 ) mGycm TECHNIQUE: Transaxial CT imaging of the brain was performed without administration of intravenous contrast material. Individualized dose optimization techniques were used for this CT. COMPARISON: Previous study of November 15, 2017 FINDINGS: Normal soft tissue structures. Normal calvarium. Normal size ventricles and extra-axial spaces for the patient's age. There are areas of decreased attenuation within the white matter tracts of the supratentorial brain, consistent with microvascular disease changes. Normal basal ganglia and thalami. Normal brainstem. Normal cerebellum. There is no intracranial hemorrhage. There are no findings of an acute ischemic infarction. There is mucosal thickening of the right sphenoid sinus and multiple ethmoid air cells bilaterally. CT/Brain/Head without Contrast IMPRESSION: Chronic involutional changes of the brain. Mild chronic pansinusitis. There is no intracranial hemorrhage or evidence of acute infarct. Electronically Signed: Andrea Meredith MD at 23:24 EDT , Service support ,
--- NOTE | 2018-05-01 22:04 | ED.VISSUMM ---
- ER Visit Summary Date of Service: 05/01/18 Chief Complaint: Confusion History of Present Illness: The patient is a 58 F who per her left the house around 1 PM today to meet friends and go to the horse races at the [facility]. Patient called her on 7 PM. He states she was confused and was unsure where she was. Friends drove her home. Patient states she does not remember much of the events of the day. She does not member she ate or drank. She does believe they were out in the sun. was not told of any injuries. Patient denies pain. Physical Examination: Vital signs significant for blood pressure 167/78, otherwise unremarkable. Patient sitting in a bedside chair next to her . She is in no acute distress. She is a flat affect and poor eye contact. Head and neck examination reveals no external sign of trauma. Heart is regular rate and rhythm. Lung sounds are clear. Abdomen is soft nontender. Neuro exam reveals normal strength and sensation throughout. She is alert and oriented to the year but not the month. She is oriented to person, place. Test Results: EKG is sinus at 76 with no sign of acute ischemia. CT head shows mild involutional changes. There is mild chronic pansinusitis. No hemorrhage or acute infarction noted. CBC is normal. Chemistry studies are significant for a sodium of 132 and potassium of 3.4. Urinalysis does reveal 50 ketones with no sign of acute infection. Troponin is less than 0.015. BGT on arrival was 117. Emergency Department Course and Treatment: Patient was given IV fluids. On repeat evaluation she feels somewhat improved but skin still not remember the details of today. She is given potassium replacement orally. I recommended hospitalization overnight for IV hydration and recheck of her labs. Treatment Plan: [] Disposition: Admit Impression: 1. Confusion 2. Mild hyponatremia 3. Mild hypokalemia This note was generated with [employer] dictation software. It may contain incorrect words, spelling, and punctuation that were not noted in review of the chart prior to signing ED Disposition - Plan for ED Patient: Chief Complaint: Confusion Referrals: Care Physician,No Primary [Primary Care Provider] -
[2018-05-01 22:10] LABS: Bedside Glucose 117 mg/dL (70-110)
[2018-05-01 22:21] LABS: Absolute Neutrophil Count 5.8 X10^3/uL (2.0-7.7); Basophil# 0.01 X10^3/uL; Basophil% 0.1 % (0-1); Eosinophil# 0.02 X10^3/uL; Eosinophils% 0.3 % (0-5); Hematocrit 38.5 % (37-47); Hemoglobin 12.9 g/dl (12.0-15.0); Mean Corp Hgb Conc 33.5 g/gl (32-36); Mean Corpuscular Hgb 30.5 pg (27.0-32.0); Monocyte% 2.9 % (0-10); Neutrophil # 5.78 X10^3/uL (2.7-7.7); Neutrophil % 83.6 % (47-70); Platelet Count 225 K/mm3 (150-450); RBC Distribution Width CV 12.2 % (11.6-14.6); RBC Distribution Width SD 40.7 fl (35.1-43.9); Red Blood Count 4.23 M/mm3 (4.2-5.4); White Blood Count 6.9 K/mm3 (4.4-11.0)
[2018-05-01 22:22] LABS: POSITIVE COUNT NO; POSITIVE DIFFERENTIAL NO; POSITIVE MORPHOLOGY NO
[2018-05-01] MEDS: 0.9% Normal Saline 1,000 ML 1000 ML IV (22:30)
[2018-05-01 22:37] LABS: Anion Gap 9 (5-15); BUN 12 mg/dL (7-18); BUN/Creat Ratio 16.3 RATIO (10-20); Chloride 98 mmol/L (98-107); Creatinine, Serum 0.74 mg/dL (0.55-1.02); EST Glomerular Filtration Rate 86 mL/min (>60); Est Glom Filt Rate - Afr Amer 105 mL/min (>60); Estimated Creatinine Clearance 69.38 ml/min; Glucose 114 mg/dL (74-106); Potassium 3.4 mmol/L (3.5-5.1); Sodium Level 132 mmol/L (136-145)
[2018-05-01 23:31] LABS: Bacteria 0 SEEN /hpf (None Seen); Mucous, Urine 0 SEEN /hpf (<or=2+); Red Blood Cells-Urine 0 SEEN /hpf (0-5); Squamous Epithelial Cells - UA 0 SEEN /hpf (5-10); White Blood Cells 0 SEEN /hpf (0-5)
[2018-05-01] MEDS: 0.9% Normal Saline 1,000 ML 150 ML IV (23:32)
[2018-05-01 23:33] VITALS: BP 146/80; PULSE 81; RESP 20; O2SAT 98
[2018-05-01 23:36] LABS: Color, Urine Yellow (Yellow); Glucose, Dipstick Normal (Normal); Ketone-Dipstick 50 mg/dl (Negative); Leukocyte Esterase-Dipstick 25 /ul (Negative); Nitrite-Dipstick Negative (Negative); Occult Blood-Urine Negative /ul (Negative); Protein-Dipstick Negative (Negative); Urine Bilirubin Dipstick Negative (Negative); Urine Clarity Clear (Clear); Urine Urobilinogen Normal (Normal)
--- NOTE | 2018-05-01 23:58 | HP.PCM_ITS ---
Problem List (1) TIA (transient ischemic attack) Status: Acute (2) Vertigo Status: Chronic History of Present Illness Date of Admission: 05/01/18 Chief Complaint: Confusion The patient is a 58 y/o F w/ PMHx: Vertigo otherwise healthy who presents to the [facility] ED on 05/01/18 with history of leaving for the [facility] with co-workers, noted to be normal and her baseline at ~ 1 pm per her significant with horse showing all day and unclear oral intake both food and water w/ spouse noting several calls from her through the day which patient does not recall with eventually noted confusion per her co-workers. She was unable to recall many of the events through the day and noted a general sense of confusion. She noted this has made her very anxious. She denies any focal deficits. In the ED she has initial NIHSS 1. Work-up in the ED included T 98.3, heart rate 81, BP initially 167/78--> 146/80-->137/80, respiratory rate 16, 98% on room air, unremarkable CBC, BMP with sodium 132, potassium 3.4, glucose 114, putting less than 0.015, EKG with no acute needs, urinalysis unremarkable, CT brain with no acute findings. In the ED patient administered normal saline, potassium 40 mg p.o. ?1. Past Medical History Past Medical History (Chronic Problems): Chronic Problems Vertigo (Chronic) Allergies No Known Allergies Allergy (Verified 05/01/18 21:47) Home Medications: Ambulatory Orders Medication Instructions Recorded NK [NK] 05/01/18 Surgical History: - - Right shoulder arthroscopic surgery, bilateral knee endoscopic surgery, tonsillectomy. 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 Denies: Chills, Fever, Weight Change HEENT: Denies: Head Aches, Sinus Congestion, Sinus Drainage Cardiovascular: Denies: Chest Pain, Palpitations Respiratory: Denies: Cough, Shortness of breath at rest, Sputum production Gastrointestinal: Denies: Abdominal Pain, Nausea, Vomiting Genitourinary: Denies: Dysuria Musculoskeletal: Denies: Joint Pain, Joint Tenderness Skin: Denies: Rash, Wounds Neurological: Reports: Confusion. Denies: Focal weakness, Numbness, Tingling Psychiatric: Reports: Anxiety. Denies: Depression, Homicidal Ideations, Suicidal Ideations Hematologic/ Lymphatic: Denies: Easy Bruising, Easy Bleeding VTE Information - Inpt Only VTE Present on Admission: No VTE Mechan Device Prophylaxis: SCD's VTE Pharm Prophylaxis ordered?: Yes Patient Problems: Active and Suspected Problems TIA (transient ischemic attack) (Acute) Subjective: Seated upright in the ED bed, anxious secondary to difficulties recalling the day. Objective: Physical Examination: General: awake, alert, oriented to self, place, year, president but not month, cooperative, seated upright in the ED bed, mildly anxious secondary to confusion. Skin: normal color, turgor, no icterus, cyanosis. HEENT: AT/NC, EOMI, PERRLA, early dry MM, no carotid bruits or JVD noted. Lungs: CTA bilaterally, moderate effort, mild decrease BL bases, no rales, ronchi or wheezing. Heart: Regular rate and rhythm; no gallop, rub audible. Abdomen: soft, NTTP, ND, normal BS, no HSM. Extremities: no cyanosis, clubbing, or edema. Neurological: patient awake, alert, oriented 4/5 as noted; cognitive function not baseline intact; pupils equally reactive to light and accomodation; cranial nerves II-XII grossly normal, moving all 4 extremities, no focal deficits, strength preserved, L FTN mildly impaired otherwise FTN/HTS intact, sensation intact, negative babinski. Psychiatric: affect appears mildly anxious, no acute evidence of depressive feelings. - Physical Exam Vital Signs Temp Pulse Resp BP Pulse Ox 98.3 F 81 20 H 146/80 H 98 05/01/18 21:47 05/01/18 23:33 05/01/18 23:33 05/01/18 23:33 05/01/18 23:33 Oxygen Delivery Method Room Air Weight: 125 lb 0.034 oz Body Mass Index (BMI) 22.1 Finger Stick Blood Glucose 117 Laboratory Tests Past 24 Hrs 05/01/18 05/01/18 05/01/18 22:10 22:10 23:20 WBC 6.9 RBC 4.23 Hgb 12.9 Hct 38.5 MCV 91.0 MCH 30.5 MCHC 33.5 RDW 12.2 RDW Differential 40.7 Plt Count 225 MPV 10.0 Immature Gran % (Auto) 0.100 Neut % (Auto) 83.6 H Lymph % (Auto) 13.0 L [place] % (Auto) 2.9 Eos % (Auto) 0.3 Baso % (Auto) 0.1 Absolute Neuts (auto) 5.8 Absolute Lymphs (auto) 0.90 Total Counted Not Reportable Sodium 132 L Potassium 3.4 L Chloride 98 Carbon Dioxide 25.0 Anion Gap 9 BUN 12 Creatinine 0.74 Estim Creat Clear Calc 69.38 Est GFR (MDRD) Af Amer 105 Est GFR (MDRD) Non-Af 86 BUN/Creatinine Ratio 16.3 Glucose 114 H Calcium 9.0 Troponin I < 0.015 Urine Color Yellow Urine Clarity Clear Urine pH 7.0 Ur Specific [place] 1.010 Urine Protein Negative Urine Glucose (UA) Normal Urine Ketones 50 H Urine Occult Blood Negative Urine Nitrite Negative Urine Bilirubin Negative Urine Urobilinogen Normal Ur Leukocyte Esterase 25 H Urine RBC 0 SEEN Urine WBC 0 SEEN Ur Squamous Epith Cells 0 SEEN Urine Bacteria 0 SEEN Urine Mucus 0 SEEN POC Glucose 05/01/18 22:03 POC Glucose 117 H Assessment/Plan All Active Problems TIA (transient ischemic attack) (Acute) The patient is a 58 y/o F w/ PMHx: Vertigo otherwise healthy who presents to the [facility] ED on 05/01/18 with history of leaving for the [facility] with co-workers, noted to be normal and her baseline at ~ 1 pm per her significant with horse showing all day and unclear oral intake both food and water w/ spouse noting several calls from her through the day which patient does not recall with eventually noted confusion per her co-workers. (1) Acute Encephalopathy, Unclear Specific Etiology, concerning for TIA/CVA, contributed to by #2 additionally: Work-up in the ED included T 98.3, heart rate 81, BP initially 167/78--> 146/80-->137/80, respiratory rate 16, 98% on room air, unremarkable CBC, BMP with sodium 132, potassium 3.4, glucose 114, putting less than 0.015, EKG with no acute needs, urinalysis unremarkable, CT brain with no acute findings. Will admit to PCU, will obtain MRI Brain, MRA Head and Neck, ECHO, PT/OT/Speech evaluation per protocol. Will allow permissive HTN, maintain on asa, add statin w/ pending AM FLP, fall precautions. (2) Hyponatremia, mild, suspected hypovolemia: Likely secondary to poor oral intake, dehydration, continue IV fluids, repeat BMP in a.m. (3) Elevated BP without HTN Diagnosis: Improved in the ED without treatment, continue to monitor, permissive currently. (4) Hypokalemia: Admission K+ 3.4, supplementation given, repeat level in AM. (5) Hx Vertigo: No vertiginous symptoms with current events. (6) DVT Prophylaxis: SCDs, lovenox. Code Visit OBSV E&M: 24661 Initial observation care L3
[2018-05-02] VITALS (12 sets, daily range): BP systolic 117–148; BP diastolic 73–87; PULSE 50–77; RESP 14–16; TEMP 36.8–37.2; O2SAT 96–100; BMI 22.1; BMI 22.2
--- NOTE | 2018-05-02 00:33 | NURSING ---
Called ED electronics warfare technicianKaren YOUNGBLOOD at this time to confirm Pt okay to come to PCU.
--- NOTE | 2018-05-02 00:53 | ECHOD_ITS ---
Reason For Study: TIA/STROKE Procedure This was a 2D Doppler, Color Flow transthoracic echocardiogram. Exam performed portable in patient room. Left Ventricle Normal LV size. Left ventricular systolic function is normal. The estimated ejection fraction is 65 %. Normal diastology for age. No regional wall motion abnormalities noted. Right Ventricle Normal RV size. Normal systolic function. Atria Normal left atrium. Normal right atrium. No doppler evidence for ASD. Bubble contrast study negative for right to left interatrial shunt. Mitral Valve There is no mitral annular calcification. Mild diffuse mitral valve thickening. Mild (1+) eccentric mitral valve insufficiency. Tricuspid Valve Normal tricuspid valve. Trivial tricuspid valve insufficiency. Right ventricular systolic pressure estimated to be 25 mmHg. Aortic Valve Trisinus/trileaflet aortic valve. Mild diffuse aortic valve thickening. Pulmonic Valve The pulmonic valve is not well visualized. Trivial pulmonic valve insufficiency. Great Vessels Normal sized aortic root. Pericardium/Pleural No pericardial effusion. Medication Performed a rapid injection of agitated mix of 9 cc saline and 1cc air to assess for atrial septal defect. MMode/2D Measurements & Calculations LVIDd: 4.2 cm IVSd: 0.88 cm Ao root diam: 3.3 cm LVIDs: 2.4 cm LVPWd: 0.84 cm LA dimension: 2.9 cm FS: 44.3 % LAV(MOD-sp4): 23.6 ml LA A4 area: 12.4 cm2 RA A4 area: 13.3 cm2 Time Measurements MV dec time: 0.19 sec Doppler Measurements & Calculations MV E max marlon: 110.5 cm/sec Lat Peak E' Marlon: 9.9 cm/sec Med Peak E' Marlon: 9.9 cm/sec MV A max marlon: 66.9 cm/sec E/E' lat: 11.1 E/E' med: 11.2 MV E/A: 1.7 MV V2 max: 113.6 cm/sec MV P1/2t max marlon: 115.6 cm/sec Ao V2 max: 142.5 cm/sec MV max P.2 mmHg MV P1/2t: 103.9 msec Ao max P.1 mmHg MV V2 mean: 63.4 cm/sec MV dec slope: 325.8 cm/sec2 Ao V2 mean: 84.7 cm/sec MV mean P.9 mmHg MVA(P1/2t): 2.1 cm2 Ao mean P.4 mmHg MV V2 VTI: 32.1 cm Ao V2 VTI: 29.7 cm LV V1 max: 137.4 cm/sec PA V2 max: 79.0 cm/sec TR max marlon: 233.4 cm/sec LV V1 max P.6 mmHg TR max P.8 mmHg LV V1 mean P.4 mmHg LV V1 mean: 85.5 cm/sec LV V1 VTI: 30.6 cm Interpretation Summary Left ventricular systolic function is normal. The estimated ejection fraction is 65 %. Mild diffuse mitral valve thickening. Mild (1+) eccentric mitral valve insufficiency. Trivial tricuspid valve insufficiency. Mild diffuse aortic valve thickening. Trivial pulmonic valve insufficiency. Right ventricular systolic pressure estimated to be 25 mmHg. Normal diastology for age. Bubble contrast study negative for right to left interatrial shunt. Ordering Physician: Cindy Jhaveri Performed By: Stefan Hobbs RCS
[2018-05-02 01:11] LABS: Magnesium 1.9 mg/dL (1.6-2.6)
[2018-05-02] MEDS: 0.9% Normal Saline 1,000 ML 125 ML IV ×2 (01:32→09:49)
[2018-05-02 01:35] LABS: Thyroid Stim Hormone (TSH) 1.81 uIU/mL (0.358-3.74)
[2018-05-02] MEDS: Ondansetron 4 MG/2 ML Vial IV (02:00)
[2018-05-02 05:10] LABS: Absolute Lymphocyte Count 0.84 X10^3/ul (0.83-4.51); Eosinophil# 0.01 X10^3/uL; Eosinophils% 0.2 % (0-5); Hematocrit 37.8 % (37-47); Hemoglobin 12.5 g/dl (12.0-15.0); Lymphocyte # 0.84 X10^3/ul (4.0); Lymphocyte % 16.2 % (19-41); Mean Corp Hgb Conc 33.1 g/gl (32-36); Mean Corpuscular Hgb 30.2 pg (27.0-32.0); Mean Corpuscular Volume 91.3 fL (81-99); Monocyte# 0.29 X10^3/uL; Monocyte% 5.6 % (0-10); Neutrophil # 4.03 X10^3/uL (2.7-7.7); Platelet Count 204 K/mm3 (150-450); RBC Distribution Width CV 12.1 % (11.6-14.6); RBC Distribution Width SD 40.8 fl (35.1-43.9); Red Blood Count 4.14 M/mm3 (4.2-5.4); White Blood Count 5.2 K/mm3 (4.4-11.0)
[2018-05-02 05:28] LABS: Anion Gap 11 (5-15); BUN 9 mg/dL (7-18); BUN/Creat Ratio 16.1 RATIO (10-20); Calcium,Total 8.4 mg/dL (8.5-10.1); Chloride 104 mmol/L (98-107); Cholesterol 197 mg/dL (200); Creatinine, Serum 0.56 mg/dL (0.55-1.02); EST Glomerular Filtration Rate 119 mL/min (>60); Est Glom Filt Rate - Afr Amer 144 mL/min (>60); Estimated Creatinine Clearance 91.69 ml/min; Glucose 102 mg/dL (74-106); High Density Lipoprotein 68 mg/dL; Potassium 4.2 mmol/L (3.5-5.1); Sodium Level 139 mmol/L (136-145); Triglycerides 35 mg/dL; Very Low Density Lipoprotein 7 mg/dL (5-40)
[2018-05-02 05:37] LABS: POSITIVE COUNT NO; POSITIVE DIFFERENTIAL NO; POSITIVE MORPHOLOGY NO
[2018-05-02] MEDS: Aspirin 81 MG TAB.CHEW PO (09:43)
[2018-05-02] MEDS: Enoxaparin 40 MG/0.4 ML Syringe SC (09:43)
[2018-05-02] MEDS: Famotidine 20 MG Tablet PO (09:43)
[2018-05-02] MEDS: 0.9% NaCl Peripheral Flush Adult/Peds IV (09:43)
--- NOTE | 2018-05-02 11:20 | PCM.CONS.GEN ---
Reason for Consult Date of Consultation: 05/02/18 Reason for Consultation: confusion History of Present Illness: The patient is a 58 year old right handed white female was normal until about 1pm yesterday, then became nonspecifically confused. no witnesses availble. pt has little recollection for the events after arriving at the [facility] yesterday. 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 reports slept in yesterday am, usual morning routine. denies exertion. per admit h&p:The patient is a 58 y/o F w/ PMHx: Vertigo otherwise healthy who presents to the [facility] ED on 05/01/18 with history of leaving for the [facility] with co-workers, noted to be normal and her baseline at ~ 1 pm per her significant with horse showing all day and unclear oral intake both food and water w/ spouse noting several calls from her through the day which patient does not recall with eventually noted confusion per her co-workers. She was unable to recall many of the events through the day and noted a general sense of confusion. She noted this has made her very anxious. She denies any focal deficits. In the ED she has initial NIHSS 1. Work-up in the ED included T 98.3, heart rate 81, BP initially 167/78--> 146/80-->137/80, respiratory rate 16, 98% on room air, unremarkable CBC, BMP with sodium 132, potassium 3.4, glucose 114, putting less than 0.015, EKG with no acute needs, urinalysis unremarkable, CT brain with no acute findings. In the ED patient administered normal saline, potassium 40 mg p.o. ?1. Past Medical History Past Medical History (Chronic Problems): Chronic Problems Vertigo (Chronic) Allergies No Known Allergies Allergy (Verified 05/01/18 21:47) Home Medications: Ambulatory Orders Medication Instructions Recorded NK [NK] 05/01/18 Surgical History: - - Right shoulder arthroscopic surgery, bilateral knee endoscopic surgery, tonsillectomy. 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 Lives: Spouse/ Significant Other Smoking Status: Never smoker Tobacco Use: Non-smoker Alcohol: None Drugs: None - *Family History Maternal History Items: Cancer - Colon Paternal History Items: Cancer - Liver Patient Problems: Active and Suspected Problems TIA (transient ischemic attack) (Acute) - Physical Exam General: Alert, Oriented x3, Cooperative HEENT: Atraumatic, PERRLA, EOMI, Normocephalic Neck: Supple, No JVD, Negative Carotid Bruits Lungs: Clear to auscultation, Normal air movement Cardiovascular: Regular rate, No murmurs Abdomen: Bowel Sounds Present, Soft, Non Tender Extremities: No edema, Capillary Refill Less than 3 Seconds Skin: No rashes, No breakdown Musculoskeletal: No Tenderness to Palpation of Joints or Extremities Neurological: Cranial nerves II-XII grossly intact Psych/Mental Status: Normal Affect, Appropriate Vital Signs Temp Pulse Resp BP Pulse Ox 37.2 C 50 L 14 148/78 H 97 05/02/18 09:15 05/02/18 11:00 05/02/18 09:15 05/02/18 09:15 05/02/18 09:15 Oxygen Delivery Method Room Air Weight: 56.8 kg Body Mass Index (BMI) 22.1 Intake and Output for Last 24 Hours 04/30/18 05/01/18 05/02/18 23:59 23:59 23:59 Intake Total 466 / 466 Balance 466 / 466 Laboratory Tests Past 24 Hrs 05/02/18 05/02/18 05/02/18 04:46 04:46 04:46 WBC 5.2 RBC 4.14 L Hgb 12.5 Hct 37.8 MCV 91.3 MCH 30.2 MCHC 33.1 RDW 12.1 RDW Differential 40.8 Plt Count 204 MPV 10.0 Immature Gran % (Auto) 0.000 Neut % (Auto) 78.0 H Lymph % (Auto) 16.2 L [place] % (Auto) 5.6 Eos % (Auto) 0.2 Baso % (Auto) 0.0 Absolute Neuts (auto) 4.0 Absolute Lymphs (auto) 0.84 Total Counted Not Reportable Sodium 139 Potassium 4.2 Chloride 104 Carbon Dioxide 24.0 Anion Gap 11 BUN 9 Creatinine 0.56 Estim Creat Clear Calc 91.69 Est GFR (MDRD) Af Amer 144 Est GFR (MDRD) Non-Af 119 BUN/Creatinine Ratio 16.1 Glucose 102 Hemoglobin A1c Pending Calcium 8.4 L Triglycerides 35 Cholesterol 197 LDL Cholesterol 122 VLDL Cholesterol 7 HDL Cholesterol 68 mri and a reviewed, no significant stenosis there maybe a tiny acute left hippocampal infarct, but this is not bilateral and dosent clearly show on adc map or exponential sequences Assessment/Plan All Active Problems TIA (transient ischemic attack) (Acute) transient global amnesia asa daily statin await echo results, if negative ok to dc
--- NOTE | 2018-05-02 11:28 | CON.PCM_ITS ---
Reason for Consult Date of Consultation: 05/02/18 Reason for Consultation: confusion History of Present Illness: The patient is a 58 year old right handed white female was normal until about 1pm yesterday, then became nonspecifically confused. no witnesses availble. pt has little recollection for the events after arriving at the [facility] yesterday. 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 reports slept in yesterday am, usual morning routine. denies exertion. 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 She was unable to recall many of the events through the day and noted a general sense of confusion. She noted this has made her very anxious. She denies any focal deficits. In the ED she has initial NIHSS 1. Work-up in the ED included T 98.3, heart rate 81, BP initially 167/78--> 146/80-->137/80, respiratory rate 16, 98% on room air, unremarkable CBC, BMP with sodium 132, potassium 3.4, glucose 114, putting less than 0.015, EKG with no acute needs, urinalysis unremarkable, CT brain with no acute findings. In the ED patient administered normal saline, potassium 40 mg p.o. ?1. Past Medical History Past Medical History (Chronic Problems): Chronic Problems Vertigo (Chronic) Allergies No Known Allergies Allergy (Verified 05/01/18 21:47) Home Medications: Ambulatory Orders Medication Instructions Recorded NK [NK] 05/01/18 Surgical History: - - Right shoulder arthroscopic surgery, bilateral knee endoscopic surgery, tonsillectomy. 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 Lives: Spouse/ Significant Other Smoking Status: Never smoker Tobacco Use: Non-smoker Alcohol: None Drugs: None - *Family History Maternal History Items: Cancer - Colon Paternal History Items: Cancer - Liver Patient Problems: Active and Suspected Problems TIA (transient ischemic attack) (Acute) - Physical Exam General: Alert, Oriented x3, Cooperative HEENT: Atraumatic, PERRLA, EOMI, Normocephalic Neck: Supple, No JVD, Negative Carotid Bruits Lungs: Clear to auscultation, Normal air movement Cardiovascular: Regular rate, No murmurs Abdomen: Bowel Sounds Present, Soft, Non Tender Extremities: No edema, Capillary Refill Less than 3 Seconds Skin: No rashes, No breakdown Musculoskeletal: No Tenderness to Palpation of Joints or Extremities Neurological: Cranial nerves II-XII grossly intact Psych/Mental Status: Normal Affect, Appropriate Vital Signs Temp Pulse Resp BP Pulse Ox 37.2 C 50 L 14 148/78 H 97 05/02/18 09:15 05/02/18 11:00 05/02/18 09:15 05/02/18 09:15 05/02/18 09:15 Oxygen Delivery Method Room Air Weight: 56.8 kg Body Mass Index (BMI) 22.1 Intake and Output for Last 24 Hours 04/30/18 05/01/18 05/02/18 23:59 23:59 23:59 Intake Total 466 / 466 Balance 466 / 466 Laboratory Tests Past 24 Hrs 05/02/18 05/02/18 05/02/18 04:46 04:46 04:46 WBC 5.2 RBC 4.14 L Hgb 12.5 Hct 37.8 MCV 91.3 MCH 30.2 MCHC 33.1 RDW 12.1 RDW Differential 40.8 Plt Count 204 MPV 10.0 Immature Gran % (Auto) 0.000 Neut % (Auto) 78.0 H Lymph % (Auto) 16.2 L Alcorn % (Auto) 5.6 Eos % (Auto) 0.2 Baso % (Auto) 0.0 Absolute Neuts (auto) 4.0 Absolute Lymphs (auto) 0.84 Total Counted Not Reportable Sodium 139 Potassium 4.2 Chloride 104 Carbon Dioxide 24.0 Anion Gap 11 BUN 9 Creatinine 0.56 Estim Creat Clear Calc 91.69 Est GFR (MDRD) Af Amer 144 Est GFR (MDRD) Non-Af 119 BUN/Creatinine Ratio 16.1 Glucose 102 Hemoglobin A1c Pending Calcium 8.4 L Triglycerides 35 Cholesterol 197 LDL Cholesterol 122 VLDL Cholesterol 7 HDL Cholesterol 68 mri and a reviewed, no significant stenosis there maybe a tiny acute left hippocampal infarct, but this is not bilateral and dosent clearly show on adc map or exponential sequences Assessment/Plan All Active Problems TIA (transient ischemic attack) (Acute) transient global amnesia asa daily statin await echo results, if negative ok to dc
[2018-05-02 11:30] LABS: Hemoglobin A1c 5.1 % (4.2-6.3)
--- NOTE | 2018-05-02 15:10 | PCM.DC ---
- Discharge Diagnoses Current Active Problems: Current Active and Chronic Problems TIA (transient ischemic attack) (Acute) You will use the following diet at home:: Cardiac Your food should be the consistency of: Regular Your liquids should be the consistency of: Regular/Thin Discharge Activity: Return to Normal Activity Allergies/Adverse Reactions: Allergies No Known Allergies Allergy (Verified 05/01/18 21:47) Medications to take at Discharge Aspirin [Aspirin, Baby] 81 mg PO DAILY@0800 tab.chew 05/02/18 Atorvastatin Calcium [Lipitor] 80 mg PO QHS #30 tab 05/02/18 The following prescriptions were given: Atorvastatin Calcium [Lipitor] 80 mg PO QHS #30 tab Primary Care Physician: Care Physician,No Primary [Primary Care Provider] - Please follow up with your Primary Care Physician in: 1-2 weeks Test Results: Test results from this visit will be discussed in further detail at your follow-up appointment, if applicable. Proposed Discharge Date: 05/02/18
--- NOTE | 2018-05-02 15:13 | DCINST_ITS ---
- Discharge Diagnoses Current Active Problems: Current Active and Chronic Problems TIA (transient ischemic attack) (Acute) You will use the following diet at home:: Cardiac Your food should be the consistency of: Regular Your liquids should be the consistency of: Regular/Thin Discharge Activity: Return to Normal Activity Allergies/Adverse Reactions: Allergies No Known Allergies Allergy (Verified 05/01/18 21:47) Medications to take at Discharge Aspirin [Aspirin, Baby] 81 mg PO DAILY@0800 tab.chew 05/02/18 Atorvastatin Calcium [Lipitor] 80 mg PO QHS #30 tab 05/02/18 The following prescriptions were given: Atorvastatin Calcium [Lipitor] 80 mg PO QHS #30 tab Primary Care Physician: Care Physician,No Primary [Primary Care Provider] - Please follow up with your Primary Care Physician in: 1-2 weeks Test Results: Test results from this visit will be discussed in further detail at your follow- up appointment, if applicable. Proposed Discharge Date: 05/02/18
--- NOTE | 2018-05-02 15:14 | PCM.DC.SUM ---
<Wilfrido Feliciano - Last Filed: 05/02/18 15:14> Discharge Date and Diagnosis - Problem List Patient Problems: Active and Suspected Problems TIA (transient ischemic attack) (Acute) Date of Admission: 05/01/18 Date of Discharge: 05/02/18 - Primary Discharge Diagnosis Active and Suspected Problems Acute small left hypothalamic CVA - Secondary Discharge Diagnosis Chronic Problems Vertigo (Chronic) Hospital Course and Treatment Imaging Results: MRI/Brain without Contrast IMPRESSION: Tiny acute infarction of the left hippocampus. CT/Brain/Head without Contrast IMPRESSION: Chronic involutional changes of the brain. Mild chronic pansinusitis. There is no intracranial hemorrhage or evidence of acute infarct. Echo: Interpretation Summary Left ventricular systolic function is normal. The estimated ejection fraction is 65 %. Mild diffuse mitral valve thickening. Mild (1+) eccentric mitral valve insufficiency. Trivial tricuspid valve insufficiency. Mild diffuse aortic valve thickening. Trivial pulmonic valve insufficiency. Right ventricular systolic pressure estimated to be 25 mmHg. Normal diastology for age. Bubble contrast study negative for right to left interatrial shunt. MRI/MRA Head ONLY without Contrast IMPRESSION: Unremarkable MRA of the head MRI/MRA Neck without Contrast IMPRESSION: No demonstrated occlusion or significant stenosis. Consults: [facility] - neuro Operations: None Procedures: 2-D Echocardiogram Summary of Care Provided: Physical exam on day of discharge: General: Resting comfortably NAD Psych: A/Ox3 normal affect HEENT: PEARRLA AT NC Neck: Supple NT CV: RRR no m/t/r/g/h Resp: CTA Abd: [id number] Soft NT no guarding or rigidity Ext: DP2+= no edema Skin: W/D normal turgor Lymph/Heme: No active bleeding or adenopathy Neuro: CN2-12 intact Hospital course: The patient is a 58 year old F with no medical hx, on no meds, who presented to the ER with confusion all day and not being able to remember what happened. [place] and reportedly was behaving abnormally. She came to the ER and had a negative CT of the brain. Sodium and potassium were mildly low which normalized the following day. UA was negative. She was admitted to the PCU for stroke/tia workup. Neuro was consulted. MRI showed small left hiccocampus infarct. MRA head and neck were negative. She was placed on asa/statin. A1C was 5.1, LDL was 122, TSH normal, trop neg. Echo was obtained and showed an EF of 65%, RVSP 25 mmHg, negative bubble study. She had no difficulties with PT, OT, ST. She had no further symptoms the following day. She was discharged home in stable condition. Please follow up with your PCP and neurology in 2 weeks. This patient was seen by Wilfrido Feliciano PA-C under the supervision of Dr. Malik[] Discharge Diet: Low fat/ Low Cholesterol, 2000 mg Sodium Diet Discharge Activity: Return to Normal Activity Home Medications: Medications to take at Discharge Aspirin [Aspirin, Baby] 81 mg PO DAILY@0800 tab.chew 05/02/18 Atorvastatin Calcium [Lipitor] 80 mg PO QHS #30 tab 05/02/18 Following Prescrptions Were Given to Patient: Atorvastatin Calcium [Lipitor] 80 mg PO QHS #30 tab Primary Care Physician: Care Physician,No Primary [Primary Care Provider] - Please follow up with your Primary Care Physician in: 1-2 weeks Medical Necessity - Tobacco Use Smoking Status: Never smoker Tobacco Use: Non-smoker Meaningful Use Info Meaningful Use Diagnoses (Choose all that apply): Ischemic CVA - CHF LILLIE/ARB ordered at discharge?: Yes - CVA Therapy Assessed for PT,OT and/or ST?: Yes - Ischemic Stroke Antithrombotic order at d/c?: Yes Dx of Atrial fib/flutter?: No Statins at discharge?: Yes Primary Dx Acute Ischemic CVA?: Yes IV tPA ordered during stay?: No Reason IV t-PA not ordered: Procedure not Indicated <Eliza Mlaik - Last Filed: 05/02/18 16:00> Discharge Date and Diagnosis - Primary Discharge Diagnosis Active and Suspected Problems TIA (transient ischemic attack) (Acute) - Secondary Discharge Diagnosis Chronic Problems Vertigo (Chronic) Hospital Course and Treatment Summary of Care Provided: Hospitalist note: Discharge summary above reviewed and I agree with above discharge plan. Patient was admitted for confusion, found to have tiny acute infarction of the left hippocampus. She has no focal deficit on physical examination. On the day of discharge, patient is alert and oriented ?3. Her vital signs are stable. She has no focal deficit on physical examination. MRA of the head and neck revealed no evidence of hemodynamically significant vascular disease or stenosis. 2D echocardiogram revealed ejection fraction 65%, bubble contrast study negative for vital signs. She was treated with aspirin and statins. Her vital signs remained stable and his blood pressure was in the control. Neurology consult and recommended aspirin, statins. Patient discharged home in stable medical condition, discharged on aspirin and statins, recommended follow-up with PCP in 1-2 weeks. - Physical Exam General: Alert, Oriented x3, Cooperative, No apparent distress. HEENT: Atraumatic, PERRLA, EOMI. Neck: Supple, No JVD, Negative Carotid Bruits, Trachea Midline, Thyroid Normal. Lungs: Clear to auscultation, Normal air movement, No rhonchi, No wheeze, No rales. Cardiovascular: Regular rate, Regular Rhythm, Normal S1, Normal S2, PMI Normal. Abdomen: Bowel Sounds Present, Soft, Non Tender, Non-Distended, No Hepato-splenomegaly. Extremities: No clubbing, No cyanosis, No edema Skin: No rashes, No breakdown Neurological: Neuro grossly intact Vital Signs stable. This note was generated with [employer] dictation software. It may contain incorrect words, spelling, and punctuation that were not noted in checking the note before signing. Meaningful Use Info - CVA Therapy Assessed for PT,OT and/or ST?: Yes - Ischemic Stroke Antithrombotic order at d/c?: Yes Dx of Atrial fib/flutter?: No Reason anticoagulant not ordered: Treatment not Indicated Statins at discharge?: Yes Primary Dx Acute Ischemic CVA?: Yes IV tPA ordered during stay?: No Reason IV t-PA not ordered: Procedure not Indicated Code Visit OBSV E&M: 10038 Observation care discharge
--- NOTE | 2018-05-02 15:20 | DS.PCM_ITS ---
<Wilfrido Feliciano - Last Filed: 05/02/18 15:14> Discharge Date and Diagnosis - Problem List Patient Problems: Active and Suspected Problems TIA (transient ischemic attack) (Acute) Date of Admission: 05/01/18 Date of Discharge: 05/02/18 - Primary Discharge Diagnosis Active and Suspected Problems Acute small left hypothalamic CVA - Secondary Discharge Diagnosis Chronic Problems Vertigo (Chronic) Hospital Course and Treatment Imaging Results: MRI/Brain without Contrast IMPRESSION: Tiny acute infarction of the left hippocampus. CT/Brain/Head without Contrast IMPRESSION: Chronic involutional changes of the brain. Mild chronic pansinusitis. There is no intracranial hemorrhage or evidence of acute infarct. Echo: Interpretation Summary Left ventricular systolic function is normal. The estimated ejection fraction is 65 %. Mild diffuse mitral valve thickening. Mild (1+) eccentric mitral valve insufficiency. Trivial tricuspid valve insufficiency. Mild diffuse aortic valve thickening. Trivial pulmonic valve insufficiency. Right ventricular systolic pressure estimated to be 25 mmHg. Normal diastology for age. Bubble contrast study negative for right to left interatrial shunt. MRI/MRA Head ONLY without Contrast IMPRESSION: Unremarkable MRA of the head MRI/MRA Neck without Contrast IMPRESSION: No demonstrated occlusion or significant stenosis. Consults: [facility] - neuro Operations: None Procedures: 2-D Echocardiogram Summary of Care Provided: Physical exam on day of discharge: General: Resting comfortably NAD Psych: A/Ox3 normal affect HEENT: PEARRLA AT NC Neck: Supple NT CV: RRR no m/t/r/g/h Resp: CTA Abd: [id number] Soft NT no guarding or rigidity Ext: DP2+= no edema Skin: W/D normal turgor Lymph/Heme: No active bleeding or adenopathy Neuro: CN2-12 intact Hospital course: The patient is a 58 year old F with no medical hx, on no meds, who presented to the ER with confusion all day and not being able to remember what happened. [place] with [place] and reportedly was behaving abnormally. She came to the ER and had a negative CT of the brain. Sodium and potassium were mildly low which normalized the following day. UA was negative. She was admitted to the PCU for stroke/tia workup. Neuro was consulted. MRI showed small left hiccocampus infarct. MRA head and neck were negative. She was placed on asa/statin. A1C was 5.1, LDL was 122, TSH normal, trop neg. Echo was obtained and showed an EF of 65%, RVSP 25 mmHg, negative bubble study. She had no difficulties with PT, OT, ST. She had no further symptoms the following day. She was discharged home in stable condition. Please follow up with your PCP and neurology in 2 weeks. This patient was seen by Wilfrido Feliciano PA-C under the supervision of Dr. Malik[ ] Discharge Diet: Low fat/ Low Cholesterol, 2000 mg Sodium Diet Discharge Activity: Return to Normal Activity Home Medications: Medications to take at Discharge Aspirin [Aspirin, Baby] 81 mg PO DAILY@0800 tab.chew 05/02/18 Atorvastatin Calcium [Lipitor] 80 mg PO QHS #30 tab 05/02/18 Following Prescrptions Were Given to Patient: Atorvastatin Calcium [Lipitor] 80 mg PO QHS #30 tab Primary Care Physician: Care Physician,No Primary [Primary Care Provider] - Please follow up with your Primary Care Physician in: 1-2 weeks Medical Necessity - Tobacco Use Smoking Status: Never smoker Tobacco Use: Non-smoker Meaningful Use Info Meaningful Use Diagnoses (Choose all that apply): Ischemic CVA - CHF LILLIE/ARB ordered at discharge?: Yes - CVA Therapy Assessed for PT,OT and/or ST?: Yes - Ischemic Stroke Antithrombotic order at d/c?: Yes Dx of Atrial fib/flutter?: No Statins at discharge?: Yes Primary Dx Acute Ischemic CVA?: Yes IV tPA ordered during stay?: No Reason IV t-PA not ordered: Procedure not Indicated <Eliza Malik - Last Filed: 05/02/18 16:00> Discharge Date and Diagnosis - Primary Discharge Diagnosis Active and Suspected Problems TIA (transient ischemic attack) (Acute) - Secondary Discharge Diagnosis Chronic Problems Vertigo (Chronic) Hospital Course and Treatment Summary of Care Provided: Hospitalist note: Discharge summary above reviewed and I agree with above discharge plan. Patient was admitted for confusion, found to have tiny acute infarction of the left hippocampus. She has no focal deficit on physical examination. On the day of discharge, patient is alert and oriented ?3. Her vital signs are stable. She has no focal deficit on physical examination. MRA of the head and neck revealed no evidence of hemodynamically significant vascular disease or stenosis. 2D echocardiogram revealed ejection fraction 65%, bubble contrast study negative for vital signs. She was treated with aspirin and statins. Her vital signs remained stable and his blood pressure was in the control. Neurology consult and recommended aspirin, statins. Patient discharged home in stable medical condition, discharged on aspirin and statins, recommended follow- up with PCP in 1-2 weeks. - Physical Exam General: Alert, Oriented x3, Cooperative, No apparent distress. HEENT: Atraumatic, PERRLA, EOMI. Neck: Supple, No JVD, Negative Carotid Bruits, Trachea Midline, Thyroid Normal. Lungs: Clear to auscultation, Normal air movement, No rhonchi, No wheeze, No rales. Cardiovascular: Regular rate, Regular Rhythm, Normal S1, Normal S2, PMI Normal. Abdomen: Bowel Sounds Present, Soft, Non Tender, Non-Distended, No Hepato- splenomegaly. Extremities: No clubbing, No cyanosis, No edema Skin: No rashes, No breakdown Neurological: Neuro grossly intact Vital Signs stable. This note was generated with [employer] dictation software. It may contain incorrect words, spelling, and punctuation that were not noted in checking the note before signing. Meaningful Use Info - CVA Therapy Assessed for PT,OT and/or ST?: Yes - Ischemic Stroke Antithrombotic order at d/c?: Yes Dx of Atrial fib/flutter?: No Reason anticoagulant not ordered: Treatment not Indicated Statins at discharge?: Yes Primary Dx Acute Ischemic CVA?: Yes IV tPA ordered during stay?: No Reason IV t-PA not ordered: Procedure not Indicated Code Visit OBSV E&M: 32931 Observation care discharge
--- NOTE | 2018-05-02 23:58 | MRI_ITS ---
STUDY: MRA OF THE HEAD WITHOUT CONTRAST REASON FOR EXAM: Female, 58 years old. confusion, MEMORY LOSS. TECHNIQUE: 3-D [id number] (TOF) imaging was performed with MIPs. The study was performed unenhanced. COMPARISON: None. FINDINGS: Normal bilateral petrous carotid arteries. Normal right cavernous carotid artery with a normal supraclinoid bifurcation. Normal left cavernous carotid artery with a normal supraclinoid bifurcation. Normal right A1 segments of the anterior cerebral artery. Normal left A1 segments of the anterior cerebral artery. Normal intact anterior communicating artery (ACOM). Normal bilateral A2 segments of the anterior cerebral arteries. Normal right M1 and M2 segments of the middle cerebral arteries, with a normal M1 bifurcation. Normal left M1 and M2 segments of the middle cerebral arteries, with a normal M1 bifurcation. There is non-visualization of the right posterior communicating artery (PCOM). Normal left posterior communicating artery (PCOM). Normal bilateral vertebral arteries. Normal basilar artery with a normal basilar bifurcation. The visualized bilateral superior cerebellar (SCA) arteries are normal. Normal bilateral P1, P2 and visualized P3 segments of the posterior cerebral arteries. There is no demonstrated aneurysm of the [place]. There is no major vessel occlusion or hemodynamically significant stenosis. There is no demonstrated abnormality of the visualized brain. MRI/MRA Head ONLY without Contrast IMPRESSION: Unremarkable MRA of the head Electronically Signed: Devyn Newby MD at 10:36 EDT Tel , Service support ,
--- NOTE | 2018-05-02 23:58 | MRI_ITS ---
STUDY: MRI BRAIN WITHOUT CONTRAST REASON FOR EXAM: Female, 58 years old. confusion, memory loss. TECHNIQUE: Standardized multiplanar fat and water weighted pulse sequences were obtained. COMPARISON: 11/16/2017 FINDINGS: Normal size of the ventricles and extra-axial spaces for the patient's age. Again noted are the extensive periventricular and subcortical white matter hyperintensities which are grossly unchanged since the prior examination. There is no associated restricted diffusion to suggest active disease. There is a 2 mm focus of restricted diffusion involving the left hippocampus body (axial image #14 series 4) Normal bilateral basal ganglia. Normal thalami. There is no extra-axial fluid accumulation. Normal flow voids within the major intracranial circulation suggesting patency by spin echo criteria. Normal sella turcica, pituitary gland, infundibular stalk, optic chiasm and hypothalamus. Normal tectal plate and pineal gland. Normal midbrain, jessenia and medulla. Normal cerebellum. Normal basal cisterns. Normal bilateral temporal bones. Normal bilateral internal auditory canals. There is mild paranasal sinus disease MRI/Brain without Contrast IMPRESSION: Tiny acute infarction of the left hippocampus. N.B. : The above information has been verbally conveyed by Devyn Newby MD to Cindy Jhaveri on 05/02/2018 10:21:39 (ET). Electronically Signed: Devyn Newby MD at 10:34 EDT Tel , Service support ,
--- NOTE | 2018-05-02 23:58 | MRI_ITS ---
STUDY: MRA NECK WITHOUT CONTRAST REASON FOR EXAM: Female, 58 years old. cva, confusion, MEMORY LOSS. TECHNIQUE: Source images were obtained, MIPs were performed. The study was performed unenhanced. COMPARISON: None. FINDINGS: RIGHT CAROTID ARTERIES: Unremarkable right common carotid artery (CCA). Unremarkable right common carotid bulb. Unremarkable origin of the right internal carotid (ICA) artery without a hemodynamically significant stenosis. Unremarkable visualized cervical portion of the right internal carotid artery. LEFT CAROTID ARTERIES: Unremarkable left common carotid artery (CCA). Unremarkable left common carotid bulb. Unremarkable origin of the left internal carotid (ICA) artery without a hemodynamically significant stenosis. Unremarkable visualized cervical portion of the left internal carotid artery. VERTEBRAL ARTERIES: There is antegrade flow within the bilateral vertebral arteries with a small left vertebral artery, and a dominant right vertebral artery. MRI/MRA Neck without Contrast IMPRESSION: No demonstrated occlusion or significant stenosis. Electronically Signed: Devyn Newby MD at 11:04 EDT Tel , Service support ,
== END 2018-05-02 15:13 | disposition home or self-care (01) ==
LOC: ED 22:41 → PCU 05-02 00:24
PROVIDERS: Physician Assistant; Admitting Provider Family Medicine; Emergency Provider Emergency Medicine; Visit Provider Hospitalist
DX: G45.9 Transient cerebral ischemic attack, unspecified (principal); R42 Dizziness and giddiness; I08.1 Rheumatic disorders of both mitral and tricuspid valves; E87.1 Hypo-osmolality and hyponatremia; E87.6 Hypokalemia; R03.0 Elevated blood-pressure reading, without diagnosis of hypertension; R94.31 Abnormal electrocardiogram [ECG] [EKG]; R29.701 NIHSS score 1; G45.4 Transient global amnesia
CPT/HCPCS: 36415; 70450; 70544; 70547; 70551; 80048; 80061; 81001; 82962; 83036; 83735; 84443; 84484; 85025; 92523; 93005; 93306; 96361; 96372; 96374; 97162; 97165; 99218; 99285; J7030; A4216; G0378; J2405

== ENCOUNTER → 2018-06-17 07:51 | Outpatient (CLI) | payer BC, SELFPAY ==
[2018-06-17 08:45] LABS: Absolute Lymphocyte Count 1.14 X10^3/ul (0.83-4.51); Absolute Neutrophil Count 3.8 X10^3/uL (2.0-7.7); Basophil# 0.03 X10^3/uL; Basophil% 0.6 % (0-1); Eosinophil# 0.16 X10^3/uL; Hematocrit 40.2 % (37-47); Hemoglobin 13.2 g/dl (12.0-15.0); Lymphocyte # 1.14 X10^3/ul (4.0); Lymphocyte % 21.3 % (19-41); Mean Corp Hgb Conc 32.8 g/gl (32-36); Mean Corpuscular Hgb 30.5 pg (27.0-32.0); Mean Corpuscular Volume 92.8 fL (81-99); Mean Platelet Vol. 9.9 fl (6.2-12.0); Monocyte# 0.26 X10^3/uL; Monocyte% 4.9 % (0-10); Neutrophil # 3.76 X10^3/uL (2.7-7.7); Platelet Count 220 K/mm3 (150-450); RBC Distribution Width CV 12.5 % (11.6-14.6); RBC Distribution Width SD 42.3 fl (35.1-43.9); Red Blood Count 4.33 M/mm3 (4.2-5.4); White Blood Count 5.4 K/mm3 (4.4-11.0)
[2018-06-17 08:48] LABS: POSITIVE COUNT NO; POSITIVE DIFFERENTIAL NO; POSITIVE MORPHOLOGY NO
[2018-06-17 09:21] LABS: AST(SGOT) 18 U/L (15-37); Alanine Aminotransfer ALT/SGPT 26 U/L (13-56); Albumin, Serum 3.7 g/dL (3.2-5.0); Alkaline Phosphatase 85 U/L (45-117); Anion Gap 8 (5-15); BUN 11 mg/dL (7-18); BUN/Creat Ratio 14.1 RATIO (10-20); Calcium,Total 8.6 mg/dL (8.5-10.1); Chloride 107 mmol/L (98-107); Cholesterol 142 mg/dL (200); Creatinine, Serum 0.78 mg/dL (0.55-1.02); EST Glomerular Filtration Rate 81 mL/min (>60); Est Glom Filt Rate - Afr Amer 98 mL/min (>60); Globulin 3.6 g/dL (2.2-4.2); Glucose 83 mg/dL (74-106); High Density Lipoprotein 65 mg/dL; Potassium 3.9 mmol/L (3.5-5.1); Protein, Total 7.3 g/dL (6.4-8.2); Sodium Level 142 mmol/L (136-145); Thyroid Stim Hormone (TSH) 2.81 uIU/mL (0.358-3.74); Triglycerides 72 mg/dL; Very Low Density Lipoprotein 14 mg/dL (5-40)
== END ==
PROVIDERS: Visit Provider Family Medicine
DX: G45.9 Transient cerebral ischemic attack, unspecified (principal); F41.9 Anxiety disorder, unspecified
CPT/HCPCS: 36415; 80053; 80061; 84443; 85025

== ENCOUNTER 2018-07-25 07:30 | Emergency (ER) | payer BC, SELFPAY ==
[2018-07-25 07:32] VITALS: BP 164/96; PULSE 77; RESP 18; TEMP 36.4; O2SAT 99; BMI 21.6
--- NOTE | 2018-07-25 08:08 | EKG12_ITS ---
Test Reason : CHEST TIGHTNESS Blood Pressure : / mmHG Vent. Rate : 068 BPM Atrial Rate : 068 BPM P-R Int : 136 ms QRS Dur : 076 ms QT Int : 454 ms P-R-T Axes : 061 059 048 degrees QTc Int : 482 ms Normal sinus rhythm Prolonged QT Abnormal ECG Confirmed by ANDIE DWYER, DELMAR ([id number]), editorial specialist KONRAD MOTA ([id number]) on 07/26/2018 9:52:58 AM Referred By: Confirmed By:DELMAR CHAVES MD
--- NOTE | 2018-07-25 08:29 | RAD_ITS ---
STUDY: X-RAY CHEST REASON FOR EXAM: Female, 58 years old. Chest pain and tightness. TECHNIQUE: PA and lateral views of the chest. COMPARISON: None. FINDINGS: EKG electrodes are seen. Hyperinflation. The lungs are clear. There is no demonstrated pleural abnormality. Normal size heart. Normal mediastinum and khang. Normal visualized pulmonary arteries. There is atherosclerotic tortuosity of the aortic arch and descending thoracic aorta. There is a mild dextroscoliosis of the thoracic spine. Normal visualized ribs, clavicles, and shoulders. There is no demonstrated abnormality of the visualized soft tissue structures of the upper abdomen. RAD/Chest PA and Lateral IMPRESSION: Hyperinflation. The lungs are clear. Electronically Signed: Kendell Dawson MD at 8:50 EDT Tel [phone], Service support ,
--- NOTE | 2018-07-25 08:37 | ED.DCSUM_ITS ---
- ER Visit Summary Date of Service: 07/25/18 Chief Complaint: Diarrhea chest pressure History of Present Illness: The patient is a 58 F who states that when she woke this morning she had a warm sensation in the left side of her face and arm. She also notes some chest tightness. She has had diarrhea 3-4 times this morning. She feels a little short of breath. She states her stomach feels off. She states that this does not feel like a typical stomach flu. She has a history of a TIA and is on Lipitor aspirin and Plavix because of that. She sees Dr. Wang. Notes some easy bruising. Physical ExaminationAfebrile vital signs are stable Gen: Well-nourished well-developed Head: Normocephalic atraumatic Eyes: Perrl EOMI ENT: TMs clear no rhinorrhea moist mucous membranes Neck: Supple no lymphadenopathy no JVD nontender CVS: Regular rate rhythm no murmurs normal S1-S2 Respiratory: No distress clear to auscultation bilaterally chest nontender Abdomen: Soft nontender nondistended normal bowel sounds no masses Back: Nontender Extremity: Nontender no edema excellent capillary refill strong pulses of the proximal and distal legs Skin: Normal color no rash Neuro: alert orientated ?3 CN II-XII intact normal strength sensation reflexes gait cerebellar Psych: Anxious Test Results: EKG shows a normal sinus rhythm at a rate of 68 and appears unchanged from April 2018. CBC CMP troponin urinalysis normal. Chest x-ray negative. Emergency Department Course and Treatment: Patient's labs are normal. Patient's BOBBI score is 0. I do not think that this is PE or dissection. I think this is extremely low risk for ACS and is very atypical. She will be discharged home with follow-up return if worsening or concerns Impression: 1. Diarrhea 2. Chest pain This note was generated with [employer] dictation software. It may contain incorrect words, spelling, and punctuation that were not noted in review of the chart prior to signing ED Disposition - Plan for ED Patient: Disposition: Home or Assisted Living Chief Complaint: Diarrhea Instructions: ED Diarrhea Viral Referrals: Jean Wang MD [Primary Care Provider] -
[2018-07-25 08:42] LABS: Hematocrit 39.5 % (37-47); Mean Corpuscular Hgb 31.1 pg (27.0-32.0); Mean Corpuscular Volume 94.5 fL (81-99); Red Blood Count 4.18 M/mm3 (4.2-5.4); White Blood Count 4.3 K/mm3 (4.4-11.0)
[2018-07-25 08:43] LABS: Absolute Lymphocyte Count 0.97 X10^3/ul (0.83-4.51); Absolute Neutrophil Count 2.9 X10^3/uL (2.0-7.7); Basophil# 0.02 X10^3/uL; Basophil% 0.5 % (0-1); Eosinophil# 0.08 X10^3/uL; Eosinophils% 1.9 % (0-5); Lymphocyte # 0.97 X10^3/ul (4.0); Lymphocyte % 22.6 % (19-41); Mean Corp Hgb Conc 32.9 g/gl (32-36); Monocyte# 0.33 X10^3/uL; Monocyte% 7.7 % (0-10); Neutrophil # 2.89 X10^3/uL (2.7-7.7); Neutrophil % 67.3 % (47-70); POSITIVE COUNT NO; POSITIVE DIFFERENTIAL NO; POSITIVE MORPHOLOGY NO; Platelet Count 197 K/mm3 (150-450); RBC Distribution Width SD 40.4 fl (35.1-43.9)
[2018-07-25 08:54] LABS: ALB/GLOB Ratio 1.1 RATIO (0.9-2.4); AST(SGOT) 30 U/L (15-37); Alanine Aminotransfer ALT/SGPT 36 U/L (13-56); Albumin, Serum 3.5 g/dL (3.2-5.0); Alkaline Phosphatase 85 U/L (45-117); Anion Gap 8 (5-15); BUN 12 mg/dL (7-18); BUN/Creat Ratio 17.5 RATIO (10-20); Calcium,Total 8.4 mg/dL (8.5-10.1); Chloride 104 mmol/L (98-107); Creatinine, Serum 0.69 mg/dL (0.55-1.02); EST Glomerular Filtration Rate 94 mL/min (>60); Est Glom Filt Rate - Afr Amer 113 mL/min (>60); Estimated Creatinine Clearance 74.41 ml/min; Globulin 3.3 g/dL (2.2-4.2); Glucose 93 mg/dL (74-106); Lipase 107 U/L (73-393); Potassium 3.8 mmol/L (3.5-5.1); Protein, Total 6.8 g/dL (6.4-8.2); Sodium Level 139 mmol/L (136-145)
[2018-07-25 09:59] LABS: Mucous, Urine 0 SEEN /hpf (<or=2+); Red Blood Cells-Urine 0 SEEN /hpf (0-5); Squamous Epithelial Cells - UA 0 SEEN /hpf (5-10); White Blood Cells 0 SEEN /hpf (0-5)
[2018-07-25 10:04] LABS: Color, Urine Yellow (Yellow); Glucose, Dipstick Normal (Normal); Ketone-Dipstick Negative (Negative); Leukocyte Esterase-Dipstick 25 /ul (Negative); Nitrite-Dipstick Negative (Negative); Occult Blood-Urine Negative /ul (Negative); Protein-Dipstick Negative (Negative); Urine Bilirubin Dipstick Negative (Negative); Urine Clarity Clear (Clear); Urine Urobilinogen Normal (Normal)
[2018-07-25 10:11] LABS: Bacteria RARE /hpf (None Seen)
== END 2018-07-25 10:29 | disposition home or self-care (01) ==
PROVIDERS: Emergency Provider Emergency Medicine; Family Provider Family Medicine; PCP Family Medicine
DX: R07.9 Chest pain, unspecified (principal); R19.7 Diarrhea, unspecified; Z86.73 Personal history of transient ischemic attack (TIA), and cerebral infarction without residual deficits; Z79.02 Long term (current) use of antithrombotics/antiplatelets; Z79.82 Long term (current) use of aspirin; Z79.899 Other long term (current) drug therapy
CPT/HCPCS: 71046; 80053; 81001; 83690; 84484; 85025; 93005; 99284; A4216

== ENCOUNTER → 2019-07-03 | Outpatient (CLI) | payer BC, SELFPAY ==
[2019-07-03 10:05] LABS: Erythrocyte Sedimentation Rate 4 mm/hr (0-30)
[2019-07-03 10:06] LABS: Absolute Lymphocyte Count 1.15 X10^3/uL (0.83-4.51); Absolute Neutrophil Count 2.3 X10^3/uL (2.0-7.7); Basophil# 0.03 X10^3/uL; Basophil% 0.8 % (0-1); Eosinophil# 0.12 X10^3/uL; Hemoglobin 13.9 g/dL (12.0-15.0); Lymphocyte # 1.15 X10^3/ul (4.0); Lymphocyte % 28.8 % (19-41); Mean Corp Hgb Conc 33.1 g/dL (32-36); Mean Corpuscular Volume 93.5 fL (81-99); Mean Platelet Vol. 10.3 fl (6.2-12.0); Monocyte# 0.34 X10^3/uL; Monocyte% 8.5 % (0-10); NRBC Flagged by Analyzer 0 % (0-5); Neutrophil # 2.34 X10^3/uL (2.7-7.7); Neutrophil % 58.6 % (47-70); Platelet Count 215 K/mm3 (150-450); RBC Distribution Width CV 11.7 % (11.6-14.6); RBC Distribution Width SD 39.8 fl (35.1-43.9); Red Blood Count 4.49 M/mm3 (4.2-5.4)
[2019-07-03 10:20] LABS: ALB/GLOB Ratio 1.2 RATIO (0.9-2.4); AST(SGOT) 25 U/L (15-37); Alanine Aminotransfer ALT/SGPT 30 U/L (13-56); Albumin, Serum 3.7 g/dL (3.2-5.0); Alkaline Phosphatase 81 U/L (45-117); Anion Gap 6 (5-15); BUN 11 mg/dL (7-18); BUN/Creat Ratio 13.9 RATIO (10-20); Calcium,Total 8.7 mg/dL (8.5-10.1); Chloride 109 mmol/L (98-107); Cholesterol 134 mg/dL (200); Creatinine, Serum 0.79 mg/dL (0.55-1.02); EST Glomerular Filtration Rate 79 mL/min (>60); Est Glom Filt Rate - Afr Amer 96 mL/min (>60); Globulin 3.1 g/dL (2.2-4.2); Glucose 85 mg/dL (74-106); High Density Lipoprotein 61 mg/dL; Potassium 3.8 mmol/L (3.5-5.1); Protein, Total 6.8 g/dL (6.4-8.2); Rheumatoid Factor < 10.0 IU/mL (<15); Sodium Level 144 mmol/L (136-145); Triglycerides 71 mg/dL; Very Low Density Lipoprotein 14 mg/dL (5-40)
[2019-07-03 10:21] LABS: Vitamin D,25 Hydroxy 29.8 ng/mL (29.95-100.01)
[2019-07-05 13:15] LABS: ANTINUCLEAR ANTIBODIES DIRECT Negative (Negative)
== END | disposition home or self-care (01) ==
LOC: MFPLAB 08:44
PROVIDERS: Family Provider Family Medicine; PCP Family Medicine; Visit Provider Family Medicine
DX: M25.50 Pain in unspecified joint (principal); Z86.73 Personal history of transient ischemic attack (TIA), and cerebral infarction without residual deficits
CPT/HCPCS: 36415; 80053; 80061; 82306; 84443; 85025; 85652; 86038; 86431

== ENCOUNTER → 2019-09-12 14:16 | Outpatient (CLI) | payer BC, SELFPAY ==
--- NOTE | 2019-09-12 14:18 | BI_ITS ---
MAMMOGRAPHY - BILATERAL SCREENING REASON FOR EXAM: Female, 59 years old. Routine annual screening examination. PERTINENT HISTORY: Non-contributory. TECHNIQUE: Digital bilateral breast arturo (3D mammographic acquisition) in the CC and MLO projections. 2-D mediolateral oblique (MLO) and craniocaudad (CC) views of both breasts were obtained. CAD: Full Field Digital Mammography with Computer Added Detection was performed. COMPARISON: Comparison is made with prior ocular examination in July 14, 2018. FINDINGS: Breast Composition: The breasts are extremely dense, which lowers the sensitivity of mammography. There are no dominant masses or suspicious calcifications. No other significant abnormalities are identified. There has been no significant change since the prior study. BI/SCREEN MAMM (CAD) W/ARTURO BILAT IMPRESSION: Stable bilateral screening mammogram. Yearly follow-up mammogram recommended. (A) ASSESSMENT CATEGORY: BIRADS Category 1: Negative. A letter regarding these results will be sent to the patient by the facility within 30 days. Approximately 10% of breast cancers are not detected by mammography. A normal mammogram should not delay biopsy of a clinically suspicious abnormality. [id number] Electronically Signed: Kendell Dawson, at 15:30 EST , Service support ,
--- NOTE | 2019-09-12 14:22 | BD_ITS ---
STUDY: DUAL ENERGY X-RAY ABSORPTIOMETRY / DXA REASON FOR EXAM: Female, 59 years old. The patient is postmenopausal. Loss of height. TECHNIQUE: Bone Mineral Density (BMD) measurements of lumbar spine and bilateral hips were obtained. COMPARISON: None. FINDINGS: Lumbar Spine (L1-L4): g/cm2 (1.157) / T-score (-0.1) / Z-score (1.0) Findings are suggestive of normal bone density with a low fracture risk. Left Femur Total: g/cm2 (0.932) / T-score (-0.6) / Z-score (0.2) Left Femoral Neck: g/cm2 (1.017) / T-score (-0.2) / Z-score (1.0) Right Femur Total: g/cm2 (0.938) / T-score (-0.5) / Z-score (0.3) Right Femoral Neck: g/cm2 (0.978) / T-score (-0.4) / Z-score (0.7) BD/Dexa Bone Density Study IMPRESSION: The patient is considered normal as outlined below according to World [employer] Organization (WHO) criteria with a low fracture risk. Reference Information: The T-score is the number of standard deviations above or below the standard which is normal for young adults at their peak bone mineral density. The World Health Organization (WHO) interprets the T-scores as follows: Above -1 Normal bone density Between -1 and -2.5 Osteopenia Equal to / or below -2.5 Osteoporosis As a practical clinical guideline, osteopenia may be graded as follows: Mild -1 through -1.5 Moderate -1.6 through -2.0 Severe -2.1 through -2.4 The Z-score is the number of standard deviations above or below age-matched controls. A Z-score of less than -1.5 would be considered abnormal. References: 1. NIH Osteoporosis and Related Bone Diseases http://www.osteo.org 2. International Society for Clinical Densitometry http://www.iscd.org 3. National Osteoporosis Foundation http://www.nof.org Electronically Signed: Kendell Dawson, at 13:05 EST , Service support ,
== END ==
PROVIDERS: Family Provider Family Medicine; PCP Family Medicine; Referring Provider Family Medicine; Visit Provider Family Medicine
DX: Z78.0 Asymptomatic menopausal state (principal); Z12.31 Encounter for screening mammogram for malignant neoplasm of breast
CPT/HCPCS: 77063; 77067; 77080

== ENCOUNTER → 2020-09-16 14:51 | Outpatient (CLI) | payer BC, SELFPAY ==
[2020-09-16 18:30] LABS: ALB/GLOB Ratio 1.2 RATIO (0.9-2.4); AST(SGOT) 21 U/L (15-37); Alanine Aminotransfer ALT/SGPT 33 U/L (13-56); Alkaline Phosphatase 87 U/L (45-117); Anion Gap 6 (5-15); BUN 15 mg/dL (7-18); BUN/Creat Ratio 18.9 RATIO (10-20); Calcium,Total 8.8 mg/dL (8.5-10.1); Chloride 106 mmol/L (98-107); Creatinine, Serum 0.79 mg/dL (0.55-1.02); EST Glomerular Filtration Rate 79 mL/min (>60); Est Glom Filt Rate - Afr Amer 95 mL/min (>60); Globulin 3.3 g/dL (2.2-4.2); Glucose 89 mg/dL (74-106); Potassium 3.8 mmol/L (3.5-5.1); Protein, Total 7.3 g/dL (6.4-8.2); Sodium Level 140 mmol/L (136-145); Thyroid Stim Hormone (TSH) 1.71 uIU/mL (0.358-3.74)
== END ==
PROVIDERS: PCP Family Medicine; Referring Provider Family Medicine; Visit Provider Family Medicine
DX: I10 Essential (primary) hypertension (principal); R42 Dizziness and giddiness
CPT/HCPCS: 36415; 80053; 84443

== ENCOUNTER → 2021-02-12 10:53 | Outpatient (CLI) | payer BC, SELFPAY ==
--- NOTE | 2021-02-12 10:56 | RAD_ITS ---
STUDY: X-RAY CHEST REASON FOR EXAM: Female, 61 years old. Bronchitis, allergic TECHNIQUE: PA and lateral views of the chest. COMPARISON: 07/25/2018 FINDINGS: Lungs are mildly hyperexpanded without a superimposed acute pulmonary process. There is no demonstrated pleural abnormality. Normal size heart. Normal mediastinum and khang. Normal visualized pulmonary arteries. Normal visualized aortic arch and descending thoracic aorta. There are diffuse degenerative changes of the visualized thoracic spine. Normal visualized ribs, clavicles, and shoulders. There is no demonstrated abnormality of the visualized soft tissue structures of the upper abdomen. RAD/Chest PA and Lateral IMPRESSION: Mildly hyperexpanded lungs without a superimposed acute pulmonary process Electronically Signed: Addison Cortez MD at 11:29 EDT , Service support ,
[2021-02-12 12:17] LABS: Absolute Lymphocyte Count 1.05 X10^3/uL (0.83-4.51); Absolute Neutrophil Count 2.1 X10^3/uL (2.0-7.7); Basophil# 0.03 X10^3/uL; Basophil% 0.9 % (0-1); Eosinophil# 0.07 X10^3/uL; Hematocrit 41.5 % (37-47); Hemoglobin 13.6 g/dL (12.0-15.0); Lymphocyte # 1.05 X10^3/ul (0.83-4.51); Mean Corp Hgb Conc 32.8 g/dL (32-36); Mean Corpuscular Hgb 30.9 pg (27.0-32.0); Mean Corpuscular Volume 94.3 fL (81-99); Mean Platelet Vol. 10.1 fl (6.2-12.0); Monocyte# 0.29 X10^3/uL; Monocyte% 8.3 % (0-10); NRBC Flagged by Analyzer 0 % (0-5); Neutrophil # 2.05 X10^3/uL (2.7-7.7); Neutrophil % 58.5 % (47-70); Platelet Count 244 K/mm3 (150-450); RBC Distribution Width CV 11.9 % (11.6-14.6); White Blood Count 3.5 K/mm3 (4.4-11.0)
[2021-02-12 12:54] LABS: Vitamin D,25 Hydroxy 46.2 ng/mL
[2021-02-12 13:06] LABS: Anion Gap 3 (5-15); BUN 11 mg/dL (7-18); BUN/Creat Ratio 14.8 RATIO (10-20); Calcium,Total 9.4 mg/dL (8.5-10.1); Chloride 107 mmol/L (98-107); Creatinine, Serum 0.74 mg/dL (0.55-1.02); EST Glomerular Filtration Rate 85 mL/min (>60); Est Glom Filt Rate - Afr Amer 103 mL/min (>60); Glucose 74 mg/dL (74-106); Sodium Level 139 mmol/L (136-145)
== END ==
PROVIDERS: PCP Family Medicine; Referring Provider Family Medicine; Visit Provider Family Medicine
DX: J45.909 Unspecified asthma, uncomplicated (principal); E55.9 Vitamin D deficiency, unspecified; I10 Essential (primary) hypertension
CPT/HCPCS: 36415; 71046; 80048; 82306; 85025

== ENCOUNTER → 2021-04-25 15:32 | Outpatient (CLI) | payer BC, SELFPAY ==
--- NOTE | 2021-04-25 15:53 | BI_ITS ---
MAMMOGRAPHY - BILATERAL SCREENING REASON FOR EXAM: Female, 61 years old. Routine annual screening examination. PERTINENT HISTORY: TECHNIQUE: Digital bilateral breast arturo (3D mammographic acquisition) in the CC and MLO projections. 2-D mediolateral oblique (MLO) and craniocaudad (CC) views of both breasts were obtained. CAD: Full Field Digital Mammography with Computer Added Detection was performed. COMPARISON: Previous mammogram obtained on 09/12/2019 FINDINGS: Breast Composition: Dense There are no dominant masses or suspicious calcifications. No other significant abnormalities are identified. BI/SCRN MAMM (CAD)W/ARTURO BILAT IMPRESSION: Stable bilateral screening mammogram. Yearly follow-up mammogram recommended. (A) ASSESSMENT CATEGORY: BIRADS Category 1: Negative. A letter regarding these results will be sent to the patient by the facility within 30 days. Approximately 10% of breast cancers are not detected by mammography. A normal mammogram should not delay biopsy of a clinically suspicious abnormality. [id number] Electronically Signed: Christopher Holden DO at 11:29 EDT Tel , Service support ,
== END ==
PROVIDERS: PCP Family Medicine; Referring Provider Family Medicine; Visit Provider Family Medicine
DX: Z12.31 Encounter for screening mammogram for malignant neoplasm of breast (principal)
CPT/HCPCS: 77063; 77067

== ENCOUNTER → 2021-08-20 | Outpatient (CLI) | payer BC, SELFPAY | END | disposition home or self-care (01) | LOC: LABSPEC 08-22 07:51 | PROVIDERS: PCP Family Medicine; Visit Provider Nurse Practitioner Family | DX: U07.1 COVID-19 (principal) | CPT/HCPCS: 87635; U0005; U0003 ==

== ENCOUNTER 2021-12-12 10:49 | Outpatient (CLI) | payer BC, SELFPAY ==
[2021-12-12 12:41] LABS: ALB/GLOB Ratio 1.2 RATIO (0.9-2.4); AST(SGOT) 21 U/L (15-37); Alanine Aminotransfer ALT/SGPT 25 U/L (13-56); Albumin, Serum 3.7 g/dL (3.2-5.0); Alkaline Phosphatase 85 U/L (45-117); Anion Gap 4 (5-15); BUN 14 mg/dL (7-18); BUN/Creat Ratio 17.4 RATIO (10-20); Chloride 110 mmol/L (98-107); Cholesterol 150 mg/dL (200); EST Glomerular Filtration Rate 77 mL/min (>60); Est Glom Filt Rate - Afr Amer 93 mL/min (>60); Globulin 3.1 g/dL (2.2-4.2); Glucose 86 mg/dL (74-106); High Density Lipoprotein 66 mg/dL; Potassium 3.8 mmol/L (3.5-5.1); Protein, Total 6.8 g/dL (6.4-8.2); Sodium Level 141 mmol/L (136-145); Triglycerides 78 mg/dL; Very Low Density Lipoprotein 16 mg/dL (5-40)
[2021-12-12 13:17] LABS: Microalbumin:Creatinine Ratio 8.1 mg/g CRE (<30 mg/g CRE)
== END 2021-12-12 23:59 | disposition home or self-care (01) ==
LOC: MFPLAB 10:50
PROVIDERS: PCP Family Medicine; Referring Provider Family Medicine; Visit Provider Family Medicine
DX: I10 Essential (primary) hypertension (principal); G45.9 Transient cerebral ischemic attack, unspecified
CPT/HCPCS: 36415; 80053; 80061; 82043; 82570

== ENCOUNTER → 2022-05-27 | Outpatient (CLI) | payer BC, SELFPAY ==
--- NOTE | 2022-05-27 13:01 | BI_ITS ---
MAMMOGRAPHY - BILATERAL SCREENING REASON FOR EXAM: Female, 62 years old. Routine annual screening examination. PERTINENT HISTORY: Non-contributory. TECHNIQUE: Digital bilateral breast arturo (3D mammographic acquisition) in the CC and MLO projections. 2-D mediolateral oblique (MLO) and craniocaudad (CC) views of both breasts were obtained. CAD: Full Field Digital Mammography with Computer Added Detection was performed. COMPARISON: Comparison is made with prior study dated 04/25/2021 and 09/12/2019. FINDINGS: Breast Composition: The breasts are extremely dense, which lowers the sensitivity of mammography. There are no dominant masses or suspicious calcifications. Stable small benign appearing bilateral axillary lymph nodes. No other significant abnormalities are identified. There has been no significant change since the prior study. BI/SCRN MAMM (CAD)W/ARTURO BILAT IMPRESSION: Stable bilateral screening mammogram. Yearly follow-up mammogram recommended. (A) ASSESSMENT CATEGORY: BIRADS Category 2: Benign. A letter regarding these results will be sent to the patient by the facility within 30 days. Approximately 10% of breast cancers are not detected by mammography. A normal mammogram should not delay biopsy of a clinically suspicious abnormality. [id number] Electronically Signed: Kendell Dawson MD at 13:58 EDT ,
== END | disposition home or self-care (01) ==
LOC: OPBI 12:59
PROVIDERS: PCP Family Medicine; Visit Provider Family Medicine
DX: Z12.31 Encounter for screening mammogram for malignant neoplasm of breast (principal)
CPT/HCPCS: 77063; 77067

== ENCOUNTER → 2022-11-10 | Outpatient (CLI) | payer BC, SELFPAY ==
[2022-11-10 17:58] LABS: Absolute Lymphocyte Count 1.33 X10^3/uL (0.83-4.51); Absolute Neutrophil Count 3.1 X10^3/uL (2.0-7.7); Basophil# 0.03 X10^3/uL; Basophil% 0.6 % (0-1); Eosinophil# 0.08 X10^3/uL; Eosinophils% 1.6 % (0-5); Hematocrit 40.9 % (37-47); Hemoglobin 13.4 g/dL (12.0-15.0); Lymphocyte # 1.33 X10^3/ul (0.83-4.51); Lymphocyte % 27.1 % (19-41); Mean Corp Hgb Conc 32.8 g/dL (32-36); Mean Corpuscular Volume 94.7 fL (81-99); Mean Platelet Vol. 10.5 fl (6.2-12.0); Monocyte# 0.37 X10^3/uL; Monocyte% 7.6 % (0-10); NRBC Flagged by Analyzer 0 % (0-5); Neutrophil # 3.08 X10^3/uL (2.7-7.7); Neutrophil % 62.9 % (47-70); Platelet Count 260 K/mm3 (150-450); RBC Distribution Width SD 41.7 fl (35.1-43.9); Red Blood Count 4.32 M/mm3 (4.2-5.4); White Blood Count 4.9 K/mm3 (4.4-11.0)
[2022-11-10 18:09] LABS: Vitamin D,25 Hydroxy 41.5 ng/mL
[2022-11-10 18:13] LABS: ALB/GLOB Ratio 1.1 RATIO (0.9-2.4); AST(SGOT) 26 U/L (15-37); Alanine Aminotransfer ALT/SGPT 31 U/L (13-56); Albumin, Serum 3.9 g/dL (3.2-5.0); Alkaline Phosphatase 95 U/L (45-117); Anion Gap 6 (5-15); BUN 13 mg/dL (7-18); BUN/Creat Ratio 17.6 RATIO (10-20); Calcium,Total 9.2 mg/dL (8.5-10.1); Chloride 104 mmol/L (98-107); Creatinine, Serum 0.74 mg/dL (0.55-1.02); EST Glomerular Filtration Rate 85 mL/min (>60); Est Glom Filt Rate - Afr Amer 103 mL/min (>60); Globulin 3.4 g/dL (2.2-4.2); Glucose 85 mg/dL (74-106); Potassium 3.8 mmol/L (3.5-5.1); Protein, Total 7.3 g/dL (6.4-8.2); Sodium Level 138 mmol/L (136-145)
[2022-11-10 18:26] LABS: Microalbumin,Random Urine 5.2 mg/L (NO RANGE EST.); Microalbumin:Creatinine Ratio 23.4 mg/g CRE (<30 mg/g CRE)
== END | disposition home or self-care (01) ==
LOC: MFPLAB 15:04
PROVIDERS: PCP Family Medicine; Referring Provider Family Medicine; Visit Provider Family Medicine
DX: I10 Essential (primary) hypertension (principal); E55.9 Vitamin D deficiency, unspecified
CPT/HCPCS: 36415; 80053; 82043; 82306; 82570; 85025

== ENCOUNTER 2022-12-22 13:00 | Outpatient (RCR) | payer BC, SELFPAY ==
--- NOTE | 2022-11-20 15:19 | HP.PTEVAL_ITS ---
Patient's Visit Information ANN-MARIE KING is a 62 year old F referred to Physical Therapy by Dr. Jean Wang MD with a diagnosis of KNEE OA ,POSTURAL INSTABILITY. Date of Evaluation: 11/20/22 Physical Therapist: Augustine Porras PT, Cert MDT, OCS - Visit Plan Frequency: 2x /Week Duration: 4 Weeks Plan: PT INTERVENTIONS ROM/FLEXABILITY KNEE ,STRENGTHNEING QUADS/HAMS/HIP ,DLS ,POSTURAL EX'S AND FUNCTIONAL STRENGTHENING - Subjective This 62 y/o female presents to physical therapy for left knee pain and back pain. Patient has had left knee pain for many years ,patient has h/o x-rays ~ 6 years showed advance DJD. Patient back pain symmetrical lumbar. Seen DR recommended PT .No medication. Patient had bilateral knee arthroscopic . Aggravating factors for lumbar walking and standing. Alleviating factors back is rest. Aggravating factors walking, standing and stairs. Unable to squat and kneel . Patient ascends steps one step at time. Denies paresthesia/tingling-. Coughing/sneezing-. Patient pain affects sleeping . Patient has had PT for knee in past. Patient no diagnostics. Patient goals to have no pain. SOCIAL: . VOCATION: retired - Pain Left Knee Pain Intensity (Out of 10): 7 Pain Intensity Range: 10 Bilateral Back Pain Intensity (Out of 10): 0 Pain Intensity Range: 10 - Objective POSTURE: mild forward posture , Varus deformity. GAIT: reciprocal pattern. NEURO: denies paresthesia/tingling. PALPATION: unremarkable. AROM: left knee supine flexion 5-120 degrees. MMT: quads/hams 4/5 ,hip flexion 4/5 ,abduction 4-/5 ,ankle 5/5. LUMBAR ROM: flexion min loss ,extension mod loss ,side glides min loss. FLEXABILITY : min loss hamstrings - Special Tests L/S Slump test left side: Negative L/S Slump test right side: Negative L/S Left Straight Leg Raise: Negative L/S Right Straight Leg Raise: Negative Lumbar Standing: Flexion - Mechanical Response: No effect Lumbar Standing: Flexion - Symptoms During Testing: No effect Lumbar Standing: Flexion - Symptoms After Testing: No effect Lumbar Standing: Extension - Mechanical Response: No effect Lumbar Standing: Extension - Symptoms During Testing: No effect Lumbar Standing: Extension - Symptoms After Testing: No effect Lumbar Standing: Right Side Glides - Mechanical Response: No effect Lumbar Standing: Right Side [place] - Symptoms During Testing: No effect Lumbar Standing: Right Side [place] - Symptoms After Testing: No effect Lumbar Standing: Left Side [place] - Mechanical Response: No effect Lumbar Standing: Left Side [place] - Symptoms During Testing: No effect Lumbar Standing: Left Side [place] - Symptoms After Testing: No effect L Knee Jeanette - Meniscus: Negative L Knee [place] - ACL: Negative L Knee Anterior Drawer - ACL: Negative L Knee Valgus - MCL: Negative L Knee Varus - LCL: Negative L Knee Patellar Apprehension - PFS: Negative L Knee Patellar Grind - PFS: Negative - Balance/Special Test Scores Lower Extremity Functional Score: 36 - Goals Goal 1:: Patient to be I with HEP for back and knee Goal Time Frame: 4-6 Weeks Goal 2:: Patient demonstrate 50% improvement with decrease pain and improved function Goal Time Frame: 4-6 Weeks Goal 3:: Patient increase AROM left knee flexion by 5-10 degrees to improve stairs Goal Time Frame: 4-6 Weeks Goal 4:: Patient improve lumbar ROM for function of recovery to lift for ADLS Goal Time Frame: 4-6 Weeks Goal 5:: Patient to improve LFES score by 5-to improve QOL and function, Goal Time Frame: 4-6 Weeks - Rehabilitation Potential Physical Therapy Diagnosis: This patient has knee pain from apparent DJD with we akness and decrease ROM , impairs walking and standing along with increase pack pain worse with activity thus will benefit from skilled PT Rehabilitation Potential: Good - Anticipated Interventions Patient/Client Instruction: Educate patient on: Condition, Plan of Care For the Purpose of:: To decrease pain, To increase ROM, To improve muscle performance and motor function, To improve ability to perform ADL's, To increase tolerance to activity/condition/position, To improve ability of physical actions for home/community/work/leisure, To improve health of tissue, To decrease soft tissue restriction, To increase flexibility/ROM, To improve balance Therapeutic Exercise to Include: Strength training, Endurance training, Balance training, Postural training, Flexibilty training, Passive ROM, Active ROM, Dynamic Lumbar Stabilization Comment: LLE For the Purpose of:: To decrease pain, To increase ROM, To improve muscle performance and motor function, To increase tolerance to activity/condition/position, To improve ability of physical actions for home/community/work/leisure, To improve gait and locomotor functions, To improve health of tissue, To decrease soft tissue restriction, To increase flexibility/ROM, To prevent re-injury TENS: Yes IF ES: Yes Cryotherapy (ice pack, ice massage): Yes Thermo therapy (hot pack): Yes Ultrasound (thermal/non thermal): Yes For the Purpose of:: To decrease pain, To increase ROM, To improve health of tissue, To decrease soft tissue restriction Thank you for the opportunity to evaluate your patient. For Medicare and Medicare HMO plans, please review the plan of care and approve it. It will need to be FAXED BACK to us at [phone] for Medicare purposes. For Medicare only, by signing this I certify the plan of care. Please let me know if there are questions or concerns regarding this plan of care. Physician Signature: Date:
--- NOTE | 2023-04-07 14:25 | HP.PTDCSUM ---
Discharge Summary D/C summary: It has been my pleasure to treat ANN-MARIE KING referred by Dr. Jean Wang MD, with the diagnosis of KNEE OA ,POSTURAL INSTABILITY for a total of 9 visit(s). Discharge Date: 12/22/22 Please see the following information for a summary of their discharge status. Subjective Subjective: Pain is better overall less in knee Patient b Pain Left Knee: Pain Intensity (Out of 10): 4 Bilateral Back: Pain Intensity (Out of 10): 0 Overall Improvement % Improvement: 60 Objective Objective/Function: POSTURE: knee left varum GAIT: reciprocal pattern AROM: 5-130 degrees supine knee flexion MMT: quads/hams 4/5 ,hip flexion 4/5 ,hip abd 4-/5 LUMBAR ROM :flexion min loss ,extension min loss ,side glides min Goals Goal 1:: Patient to be I with HEP for back and knee Goal Progress: Goal Met Goal 2:: Patient demonstrate 50% improvement with decrease pain and improved function Goal Progress: Goal Met Goal 3:: Patient increase AROM left knee flexion by 5-10 degrees to improve stairs Goal Progress: Goal Met Goal 4:: Patient improve lumbar ROM for function of recovery to lift for ADLS Goal Progress: Goal Met Goal 5:: Patient to improve LFES score by 5-to improve QOL and function, Goal Progress: Goal Met Plan Plan: D/C TO HEP D/C Information Discharge Comments: HEP d/c sentence: If there are questions or concerns regarding this patient's physical therapy, please feel free to call me at [phone]. Thank you for the referral of this patient. Sincerely, Augustine Porras, PT, Cert MDT, OCS Balance/Gait/Functional tests Balance/Special Test Scores Lower Extremity Functional Score: 55
== END 2022-12-22 19:00 | disposition home or self-care (01) ==
LOC: PT 13:00
PROVIDERS: PCP Family Medicine; Referring Provider Family Medicine; Visit Provider Family Medicine
DX: M17.9 Osteoarthritis of knee, unspecified (principal); M25.369 Other instability, unspecified knee
CPT/HCPCS: 97110; 97162; 97530

== ENCOUNTER → 2023-05-10 | Outpatient (CLI) | payer BC, SELFPAY ==
[2023-05-10 18:13] LABS: Anion Gap 6 (5-15); BUN 15 mg/dL (7-18); BUN/Creat Ratio 20.4 RATIO (10-20); Calcium,Total 8.9 mg/dL (8.5-10.1); Chloride 106 mmol/L (98-107); Creatinine, Serum 0.73 mg/dL (0.55-1.02); EST Glomerular Filtration Rate 85 mL/min (>60); Est Glom Filt Rate - Afr Amer 103 mL/min (>60); Glucose 78 mg/dL (74-106); Potassium 3.9 mmol/L (3.5-5.1); Sodium Level 140 mmol/L (136-145)
== END | disposition home or self-care (01) ==
LOC: MFPLAB 14:24
PROVIDERS: PCP Family Medicine; Visit Provider Family Medicine
DX: I10 Essential (primary) hypertension (principal)
CPT/HCPCS: 36415; 80048

== ENCOUNTER → 2023-11-11 | Outpatient (CLI) | payer BC, SELFPAY ==
[2023-11-11 17:42] LABS: Basophil# 0.03 X10^3/uL; Basophil% 0.5 % (0-1); Eosinophils% 1.7 % (0-5); Hematocrit 42.7 % (37-47); Hemoglobin 13.7 g/dL (12.0-15.0); Mean Corp Hgb Conc 32.1 g/dL (32-36); Mean Corpuscular Hgb 30.6 pg (27.0-32.0); Mean Corpuscular Volume 95.5 fL (81-99); Mean Platelet Vol. 9.7 fl (6.2-12.0); Monocyte# 0.47 X10^3/uL; Monocyte% 7.9 % (0-10); NRBC Flagged by Analyzer 0 % (0-5); Neutrophil % 67.6 % (47-70); Platelet Count 294 K/mm3 (150-450); RBC Distribution Width CV 12.4 % (11.6-14.6); RBC Distribution Width SD 43.6 fl (35.1-43.9); Red Blood Count 4.47 M/mm3 (4.2-5.4); White Blood Count 5.9 K/mm3 (4.4-11.0)
[2023-11-11 17:54] LABS: Vitamin D,25 Hydroxy 39.8 ng/mL
[2023-11-11 18:01] LABS: ALB/GLOB Ratio 1.1 RATIO (0.9-2.4); AST(SGOT) 24 U/L (15-37); Alanine Aminotransfer ALT/SGPT 38 U/L (13-56); Alkaline Phosphatase 107 U/L (45-117); Anion Gap 4 (5-15); BUN 12 mg/dL (7-18); BUN/Creat Ratio 15.5 RATIO (10-20); Calcium,Total 8.9 mg/dL (8.5-10.1); Chloride 106 mmol/L (98-107); Cholesterol 171 mg/dL (200); Creatinine, Serum 0.77 mg/dL (0.55-1.02); EST Glomerular Filtration Rate 80 mL/min (>60); Est Glom Filt Rate - Afr Amer 97 mL/min (>60); Globulin 3.6 g/dL (2.2-4.2); Glucose 88 mg/dL (74-106); High Density Lipoprotein 68 mg/dL; Potassium 3.9 mmol/L (3.5-5.1); Protein, Total 7.6 g/dL (6.4-8.2); Sodium Level 138 mmol/L (136-145); Triglycerides 88 mg/dL; Very Low Density Lipoprotein 18 mg/dL (5-40)
[2023-11-11 18:10] LABS: Microalbumin,Random Urine 6.6 mg/L (NO RANGE EST.)
== END | disposition home or self-care (01) ==
LOC: MFPLAB 15:14
PROVIDERS: PCP Family Medicine; Visit Provider Family Medicine
DX: Z13.220 Encounter for screening for lipoid disorders (principal); I10 Essential (primary) hypertension; E55.9 Vitamin D deficiency, unspecified; M17.9 Osteoarthritis of knee, unspecified
CPT/HCPCS: 36415; 80053; 80061; 82043; 82306; 82570; 85025

== ENCOUNTER → 2023-12-07 | Outpatient (CLI) | payer BC, SELFPAY ==
--- NOTE | 2023-12-07 10:52 | BD_ITS ---
STUDY: DUAL ENERGY X-RAY ABSORPTIOMETRY / DXA REASON FOR EXAM: Female, 63 years old. M85.89 TECHNIQUE: Bone Mineral Density (BMD) measurements of lumbar spine and bilateral hips were obtained. COMPARISON: Comparison is made with prior study dated September 12, 2019. FINDINGS: Lumbar Spine (L1-L4): g/cm2 (1.078) / T-score (0.5) / Z-score (2.1) Findings are suggestive of normal bone density with a low fracture risk. Left Femur Total: g/cm2 (0.832) / T-score (-0.9) / Z-score (0.2) Left Femoral Neck: g/cm2 (0.754) / T-score (-0.9) / Z-score (0.5) Right Femur Total: g/cm2 (0.848) / T-score (-0.8) / Z-score (0.3) Right Femoral Neck: g/cm2 (0.744) / T-score (-0.9) / Z-score (0.5) The T-Scores on the most recent prior examination were: Lumbar Spine (L1-L4): There has been improvement of bone density since the previous examination. Left Femur Total: which represents a worsening of 4.2%. Right Femur Total: which represents a worsening of 3%. BD/Dexa Bone Density Study IMPRESSION: The patient is considered normal as outlined below according to World [place] Organization (WHO) criteria with a low fracture risk. There has been worsening of bone density since the previous examination. Reference Information: The T-score is the number of standard deviations above or below the standard which is normal for young adults at their peak bone mineral density. The World Health Organization (WHO) interprets the T-scores as follows: Above -1 Normal bone density Between -1 and -2.5 Osteopenia Equal to / or below -2.5 Osteoporosis As a practical clinical guideline, osteopenia may be graded as follows: Mild -1 through -1.5 Moderate -1.6 through -2.0 Severe -2.1 through -2.4 The Z-score is the number of standard deviations above or below age-matched controls. A Z-score of less than -1.5 would be considered abnormal. References: 1. NIH Osteoporosis and Related Bone Diseases www osteo.org 2. International Society for Clinical Densitometry www iscd.org 3. National Osteoporosis Foundation www nof.org Electronically Signed: Kendell Dawson MD at 9:34 EDT ,
--- OUTSIDE RECORDS SUMMARY | 2023-12-08 00:07 | XMS RPT_ITS | CCD ---
Author Name Unknown Address [address] [place] [address] Organization [facility] Care Team Providers Care Motion Picture Operator Name Role Phone Tizzano, Archie P Unavailable Unavailable Tizzano, Archie P Unavailable Unavailable Tizzano, Archie P Unavailable Unavailable Tizzano, Archie P Unavailable Unavailable Tizzano, Archie P Unavailable Unavailable Tizzano, Archie P Unavailable Unavailable Felipe DWYER, Chirag Andersen Primary Care Provider [phone] CRYSTAL DAVIDSON Referring Unavailable CHIRAG WANG Primary Care Unavailable CRYSTAL DAVIDSON Admitting Unavailable CRYSTAL DAVIDSON Attending Unavailable CHIRAG WANG Primary Care Unavailable CHIRAG WANG Primary Care Unavailable CRYSTAL DAVIDSON Attending Unavailable CHIRAG WANG Primary Care Unavailable CRYSTAL DAVIDSON Attending Unavailable CRYSTAL DAVIDSON Attending Unavailable CHIRAG WANG Primary Care Unavailable Allergies Allergy Classification Reported Allergen(s) Allergy Type Date of Onset Reaction(s) Facility (3 sources) Acetaminophen; Translations: [ACETAMINOPHEN] Drug Allergy 11-06-2005 GI Intolerance [facility] (3 sources) Acetaminophen / HYDROcodone; Translations: [HYDROCODONE-ACETA MINOPHEN] Drug Allergy 11-06-2005 GI Intolerance [facility] (3 sources) oxaprozin; Translations: [OXAPROZIN] Drug Allergy 11-06-2005 GI Intolerance [facility] (3 sources) quinapril; Translations: [QUINAPRIL] Drug Allergy 03-25-2023 Other (See Comments) [facility] Medications Current Medications Medication Drug Class(es) Dates Sig (Normalized) Sig (Original) amLODIPine 5 mg oral tablet (3 sources) Dihydropyridine Calcium Channel Himanshu Start: 01-24-2023 take 1 tablet by mouth once daily amLODIPine (NORVASC) 5 MG tablet Take 1 (one) tablet (5 mg total) by mouth daily . 0 01/24/2023 Active atorvastatin 80 mg oral tablet (3 sources) HMG-CoA Reductase Inhibitor Start: 01-24-2023 take 1 tablet by mouth once daily atorvastatin (LIPITOR) 80 MG tablet Take 1 tablet Orally Once a day 30 days 0 01/24/2023 Active cholecalciferol 0.025 mg oral capsule (3 sources) Vitamin D Start: 01-24-2023 take 1 capsule by mouth once daily cholecalciferol, vitamin D3, 25 mcg (1,000 unit) capsule Take 1 (one) capsule (1,000 Units total) by mouth daily . 0 01/24/2023 Active clopidogrel 75 mg oral tablet (3 sources) P2Y12 Platelet Inhibitor Start: 01-24-2023 take 1 tablet by mouth once daily clopidogreL (PLAVIX) 75 mg tablet Take 1 tablet Orally Once a day 30 days 0 01/24/2023 Active irbesartan 75 mg oral tablet (3 sources) Angiotensin 2 Receptor Himanshu Start: 01-24-2023 irbesartan (AVAPRO) 75 MG tablet TAKE 1 TABLET DAILY at supper time 0 01/24/2023 Active levocetirizine dihydrochloride 5 mg oral tablet (3 sources) Histamine-1 Receptor Antagonist Start: 01-21-2023 take 1 tablet by mouth once daily levocetirizine (XYZAL) 5 MG tablet Take 1 (one) tablet (5 mg total) by mouth daily . 0 01/21/2023 Active sertraline 50 mg oral tablet (3 sources) Serotonin Reuptake Inhibitor Start: 01-24-2023 take 1 tablet by mouth once daily sertraline (ZOLOFT) 50 MG tablet Take 1 tablet Orally Once a day 30 day(s) 0 01/24/2023 Active Completed/Discontinued Medications Medication Drug Class(es) Dates Sig (Normalized) Sig (Original) 1 ml triamcinolone acetonide 40 mg/ml injection (2 sources) Corticosteroid Start: 11-08-2023 End: 11-08-2023 triamcinolone acetonide (KENALOG-40) injection 40 mg Problems Active Problems Problem Classification Problem Date Documented Date Episodic/Chronic Osteoarthritis (5 sources) Osteoarthritis of left knee joint; Translations: [Unilateral primary osteoarthritis, left knee] Onset: 11-04-2023 01-27-2023 Chronic Past or Other Problems Problem Classification Problem Date Documented Da te Episodic/Chronic Residual codes; unclassified (2 sources) Pain, unspecified; Translations: [Pain, unspecified] Onset: 01-26-2023 Episodic Residual codes; unclassified (2 sources) Pain Onset: 01-26-2023 Episodic Results Test Name Value Interpretation Reference Range Facil ity Vital Signs Date Time Vital Sign Value Performing Clinician Stephanie lity 01-26-2023 13:040 Body height 152.4 cm Crystal Davidson CNP Work Phone: [facility] 01-26-2023 13:040 Body mass index (BMI) [Ratio] 25.39 kg/m2 Crystal Davidson CNP Work Phone: [facility] 01-26-2023 13: Body weight 58.97 kg Crystal Davidson CNP Work Phone: [facility] Encounters Encounter Date Encounter Type Care Provider Facility Start: 11-04-2023 End: 11-04-2023 ambulatory CHIRAG ANDERSEN [facility] Start: 11-04-2023 End: 11-04-2023 Patient encounter procedure Crystal Davidson CNP Work Phone: [facility] Procedures Date Procedure Procedure Detail Performing Clinician Start: 11-08-2023 Arthrocentesis aspir &/inj major jt/bursa w/o Crystal Davidson CNP Work Phone: Start: 08-02-2023 Arthrocentesis aspir &/inj major jt/bursa w/o us Crystal Davidson CNP Work Phone: Start: 07-14-2018 Mammography Crystal saleh CNP Work Phone: Plan of Treatment Date Care Activity Detail Author Start: 12-12-2031 Tetanus vaccination Tetanus: Every 10yrs [facility] Start: 02-03-2024 End: 02-03-2024 Patient encounter procedure 02/03/2024 1:15 PM EDT Office Visit [facility] [address] [place], [place] [id number] Crystal Davidson, ZAY [address] [address] [facility] Start: 11-04-2023 End: 11-04-2023 Patient encounter procedure 11/04/2023 1:15 PM EST Office Visit [facility] [address] [place] [id number] Crystal Davidson, ZAY [address] [place] [id number] [facility] Start: 05-28-2023 COVID-19 Vaccine ( season) COVID-19 Vaccine () [facility] Start: 05-28-2023 Influenza vaccination [facility] Start: 01-05-2023 Administration of herpes zoster vaccine Zoster Vaccines (2 of 2) [facility] Start: 11-24-2021 COVID-19 Vaccine (4 - Booster for Moderna series) COVID-19 Vaccine (4 - Booster for Moderna series) [facility] Start: 07-14-2019 Screening for malignant neoplasm of breast Mammogram [facility] Start: 2011 Screening for malignant neoplasm of colon Flexible sigmoidoscopy [facility] Start: 1982 Screening for malignant neoplasm of cervix Pap Smear [facility] Start: 1979 Hepatitis C screening Hepatitis C Screening [facility] Start: 01-31-1976 HIV screening HIV Screening [facility] Start: 1973 Depression screening using PHQ-9 (Patient Health Questionnaire 9) score Depression Screening (PHQ-2/9) [facility] Start: 01-31-1964 History and physical examination, annual for health maintenance Wellness Visit [facility] Start: 1961 Screening for malignant neoplasm of cervix Pap Smear [facility] Start: 1961 Screening for malignant neoplasm of colon [facility] Payers Date Payer Category Payer Unknown [id number] 2018 Unknown 1960 Unknown [id number] 1960 Unknown [id number] [id number] 1960 Unknown [id number] 2.16. [id number] 1960 Unknown [id number] 2.16. [id number] 1960 Unknown [id number] 2.16. [id number] 1960 Unknown [id number] 2.16. [id number] 1960 Unknown [id number] 2.16. [id number] 1960 Unknown [id number] 2.16. [id number] Social History Date Type Detail Facility Start: 01-26-2023 Tobacco smoking status NHIS Never sm oked tobacco [facility] Start: 01-26-2023 Tobacco use and exposure Smokeless t obacco non-user [facility] Start: 01-27-2023 End: 11-08-2023 Alcohol intake Ex-drinker (finding) [facility] Start: 01-26-2023 End: 11-04-2023 History of Social function [facility] Start: 01-26-2023 End: 11-04-2023 Tobacco use panel [facility] Start: 1960 Sex Assigned At Not on file [facility] Start: 01-25-2023 Gender identity Identifies as female gender (finding) [facility] Start: 01-25-2023 Sexual orientation Heterosexual (fin ding) [facility] Start: 01-16-2023 End: 01-26-2023 Exposure to SARS-CoV-2 (event) Not sure [facility] History of Present illness Narrative 11-08-2023 Crystal Davidson CNP - 11/08/2023 8:52 PM EST Note Date & Type Note Facility 11-08-2023 History of Presen t illness Narrative Associated Order(s): LG Jt Injection/Arthrocentesis: L knee Post-Procedure Diagnose(s): Primary osteoarthritis of left knee 11/08/23 Siomara Viveros 1960 Chief Complaint Patient presents with Left Knee - Follow-up HISTORY of Present Illness: Siomara Viveros is a 63 y.o. year old female that presents today with Follow-up of the Left Knee . Siomara Viveros has had injections in the past. Last injection to right/left knee was 08/02/23 and they tolerated well. They have been treated w/ oral medications & injections. Patient denies new injury to the knees. The following portions of the patient's history were reviewed and updated as appropriate: allergies, current medications, past surgical history and problem list PAST MEDICAL HISTORY The patient's Medications, Allergies, Past Surgical History, Medical History, Family History and Social History were reviewed and can be found in their online medical record, and I have reviewed this information with Siomara Viveros at the time of their visit. They are significant for Past Medical History: Diagnosis Date High cholesterol Hypertension TIA (transient ischemic attack) IMAGING Notes: none new today. Reviewed from last visit. IMPRESSION And PLAN: Cortisone injection today. Will follow up in 3 months if effective. Call if no improvement in 10 days. 1. Primary osteoarthritis of left knee LG Jt Injection/Arthrocentesis: L knee Performed by: Crystal Davidson CNP Authorized by: Crystal Davidson CNP CPT 96428 - Large Joint Arthrocentesis: Consent given by: Patient Time out: Immediately prior to the procedure a time out was called Physician or proceduralist has discussed critical or nonroutine steps, procedure duration and anticipated blood loss: Yes Supporting Documentation: Indications: Pain and diagnostic evaluation Procedure Details: Location: Knee Site: L knee Needle size: 22 G Approach: Anterolateral Medications: 40 mg triamcinolone acetonide 40 mg/mL Anesthetic used: Lidocaine 1% Anesthetic amount (mL): 2 Patient tolerance: Patient tolerated the procedure well with no immediate complications Crystal Davidson CNP documented in this encounter [facility] History of Present illness Narrative 08-02-2023 Crystal Davidson CNP - 08/02/2023 2:27 PM EST Note Date & Type Note Facility 08-02-2023 History of Presen t illness Narrative Associated Order(s): LG Jt Injection/Arthrocentesis: L knee Post-Procedure Diagnose(s): Primary osteoarthritis of left knee 08/02/23 Siomara Viveros 1960 Chief Complaint Patient presents with Left Knee - Follow-up, Pain HISTORY of Present Illness: Siomara Viveros is a 63 y.o. year old female that presents today with Follow-up and Pain of the Left Knee . Siomara Viveros has had injections in the past. Last injection to right/left knee was 04/28/23 and they tolerated well. They have been treated w/ oral medications & injections. Patient denies new injury to the knees. The following portions of the patient's history were reviewed and updated as appropriate: allergies, current medications, past surgical history and problem list PAST MEDICAL HISTORY The patient's Medications, Allergies, Past Surgical History, Medical History, Family History and Social History were reviewed and can be found in their online medical record, and I have reviewed this information with Siomara Viveros at the time of their visit. They are significant for Past Medical History: Diagnosis Date High cholesterol Hypertension TIA (transient ischemic attack) IMAGING Notes: none new today. Reviewed from last visit. IMPRESSION And PLAN: Cortisone injection today. Will follow up in 3 months if effective. Call if no improvement in 10 days. 1. Primary osteoarthritis of left knee LG Jt Injection/Arthrocentesis: L knee Performed by: Crystal Davidson CNP Authorized by: Crystal Davidson CNP CPT 25090 - Large Joint Arthrocentesis: Consent given by: Patient Time out: Immediately prior to the procedure a time out was called Physician or proceduralist has discussed critical or nonroutine steps, procedure duration and anticipated blood loss: Yes Supporting Documentation: Indications: Pain and diagnostic evaluation Procedure Details: Location: Knee Site: L knee Prep: patient was prepped and draped in usual sterile fashion Needle size: 22 G Approach: Anterolateral Medications: 40 mg triamcinolone acetonide 40 mg/mL Anesthetic used: Lidocaine 1% Anesthetic amount (mL): 2 Patient tolerance: Patient tolerated the procedure well with no immediate complications Crystal Davidson CNP documented in this encounter [facility] History of Present illness Narrative 01-27-2023 Crystal Davidson CNP - 01/27/2023 1:19 PM EDT Note Date & Type Note Facility 01-27-2023 History of Presen t illness Narrative Formatting of this note is different fro m the original. Siomara Viveros 1960 CC: 62 y.o. is a she with left knee pain. Chief Complaint Patient presents with Left Knee - Pain . HPI: Knee Pain: Patient presents to the office today with complaints of left knee pain. She denies any injury to the left knee. She also complains of a lump in the back of her knee. She reports that this pain is not constant she does take Aleve which does seem to help with her symptoms. Unfortunately the knee is starting to prevent her from doing things that she would like an wants to do. She was started in outpatient physical therapy but still has some pain. She denies any instability of the knee. PMH: No Known Allergies Current Outpatient Medications: amLODIPine (NORVASC) 5 MG tablet, Take 1 (one) tablet (5 mg total) by mouth daily ., Disp: , Rfl: atorvastatin (LIPITOR) 80 MG tablet, Take 1 tablet Orally Once a day 30 days, Disp: , Rfl: cholecalciferol, vitamin D3, 25 mcg (1,000 unit) capsule, Take 1 (one) capsule (1,000 Units total) by mouth daily ., Disp: , Rfl: clopidogreL (PLAVIX) 75 mg tablet, Take 1 tablet Orally Once a day 30 days, Disp: , Rfl: irbesartan (AVAPRO) 75 MG tablet, TAKE 1 TABLET DAILY at supper time, Disp: , Rfl: levocetirizine (XYZAL) 5 MG tablet, Take 1 (one) tablet (5 mg total) by mouth daily ., Disp: , Rfl: sertraline (ZOLOFT) 50 MG tablet, Take 1 tablet Orally Once a day 30 day(s), Disp: , Rfl: Past Medical History: Diagnosis Date High cholesterol Hypertension TIA (transient ischemic attack) Past Surgical History: Procedure Laterality Date KNEE SURGERY Bilateral SHOULDER SURGERY Right Social History Socioeconomic History Marital status: Single Tobacco Use Smoking status: Never Smokeless tobacco: Never Substance and Sexual Activity Alcohol use: Not Currently Drug use: Not Currently The patient's past medical history, surgical history, social history, family history, medications and allergies were reviewed with the patient today and are available in the chart for further review. ROS: Review of Systems Constitutional: Negative for activity change and fatigue. HENT: Negative for congestion, hearing loss and trouble swallowing. Eyes: Negative for visual disturbance. Respiratory: Negative for chest tightness and shortness of breath. Cardiovascular: Negative for chest pain and palpitations. Gastrointestinal: Negative for abdominal pain, diarrhea, nausea and vomiting. Endocrine: Negative for polydipsia, polyphagia and polyuria. Genitourinary: Negative for decreased urine volume, difficulty urinating and hematuria. Musculoskeletal: Positive for arthralgias, joint swelling and myalgias. Skin: Negative for color change, rash and wound. Allergic/Immunologic: Negative for immunocompromised state. Neurological: Negative for dizziness, weakness, light-headedness and numbness. Hematological: Does not bruise/bleed easily. Psychiatric/Behavioral: Negative for confusion and sleep disturbance. The patient is not nervous/anxious. PE: Physical Exam Constitutional: Appearance: She is well-developed. HENT: Head: Normocephalic. Eyes: Pupils: Pupils are equal, round, and reactive to light. Cardiovascular: Rate and Rhythm: Normal rate and regular rhythm. Pulmonary: Effort: Pulmonary effort is normal. Breath sounds: Normal breath sounds. Abdominal: General: Bowel sounds are normal. Palpations: Abdomen is soft. Musculoskeletal: General: Swelling and tenderness present. Normal range of motion. Cervical back: Normal range of motion and neck supple. Left knee: No effusion. Instability Tests: Medial Jeanette test negative and lateral Jeanette test negative. Skin: General: Skin is warm and dry. Neurological: Mental Status: She is alert and oriented to person, place, and time. ORTHO: Left Knee Exam Tenderness The patient is experiencing tenderness in the medial joint line, MCL and medial retinaculum. Range of Motion The patient has normal left knee ROM. Tests Jeanette: Medial - negative Lateral - negative Varus: negative Valgus: negative [place]: Anterior - negative Drawer: Anterior - negative Posterior - negative Other Erythema: absent Scars: present Sensation: normal Pulse: present Swelling: mild Effusion: no effusion present Imaging:L Knee: Severe medial compartment joint space narrowing. Small tricompartmental osteophytes. Small joint effusion. Assessment/Plan: After examination and reviewing of the patient x-ray images, we discussed treatment options for the left knee. We discussed continuing her physical therapy exercises at home as well as continued use of Tylenol instead of the Aleve. We also talked about cortisone injections as well as surgical intervention when she is ready. I am happy to see her back as needed. Diagnosis: Problem List Items Addressed This Visit None Follow Up: No follow-ups on file. Crystal Davidson CNP documented in this encounter [facility] Progress note 07-09-2021 Note Date & Type Note Facility 07-09-2021 Note HNO ID: [id number] Author: Cha West RN Service: ? Author Type: Registered Nurse Type: Progress Notes Filed: 07/09/2021 1:35 PM Note Text: Patient here for a colonoscopy consultation. Last colonoscopy was completed by Dr. Gomez in 2014, no specimens were collected at that time and it was suggested that the colonoscopy be repeated in 10 years. Per the patient, she has not had any change in bowel habits, no abdominal pain and has not had any relatives develop colon cancer. Advised patient that she is not due for a repeat colonoscopy until 2024, but if she is having any problems, we are happy to see her. She apologized and stated that she could not remember when her last colonoscopy was completed and her PCP advised to schedule the consult to be evaluated. She advised that she would wait until the 2024 date and reschedule. Patient advised that if she develops any of the above symptoms, please contact our office to schedule an evaluation. Patient voiced understanding. ANIL Del Cid aware. Cha West RN [facility] Evaluation note Note Date & Type Note Facility documented in this encounter [facility] Evaluation note Note Date & Type Note Facility documented in this encounter [facility] Evaluation note Note Date & Type Note Facility documented in this encounter [facility] Summary Purpose Family History No Family History Records FoundNo Family History Records FoundNo Family History Records FoundNo Family History Records Found Advance Directives No Advanced Directives Records FoundNo Advanced Directives Records FoundNo Advanced Directives Records FoundNo Advanced Directives Records Found Additional Source Comments INFORMATION SOURCE (unrecogn ized section and content) DATE CREATED AUTHOR AUTHOR'S ORGANIZ ATION 09/04/2018 [facility] DATE CREATED AUTHOR AUTHOR'S ORGANIZ ATION 10/26/2021 [facility] DATE CREATED AUTHOR AUTHOR'S ORGANIZ ATION 11/08/2023 [facility] Reason for Visit (unrecogniz ed section and content) Reason Comments Follow-up Pain Reason Comments Follow-up Care Teams (unrecognized sec tion and content) Motion Picture Operator Relationship Specialty Start Date End Date Chirag Wang MD [address] [facility] [address] [place], [place] [address] PCP - General Family Medicine 01/26/23 Motion Picture Operator Relationship Specialty Start Date End Date Chirag Wang MD [address] [facility] [address] [place], [place] [address] PCP - General Family Medicine 01/26/23 FOR RECORDS PERTAINING TO PATIENTS WHO ARE OR HAVE BEEN ENROLLED IN A CHEMICAL DEPENDENCY/SUBSTANCEABUSE PROGRAM, SOME INFORMATION MAY BE OMITTED. This clinical summary was aggregated from multiple sources. Caution should be exercised in using it in the provision of clinical care. This summary normalizes information from multiple sources, and as a consequence, information in this document may materially change the coding, format and clinical context of patient data. In addition, data may be omitted in some cases. CLINICAL DECISIONS SHOULD BE BASED ON THE PRIMARY CLINICAL RECORDS. [email or web address] [facility]. provides no warranty or guarantee of the accuracy or completeness of information in this document.
== END | disposition home or self-care (01) ==
LOC: OPBD 10:50
PROVIDERS: PCP Family Medicine; Referring Provider Family Medicine; Visit Provider Family Medicine
DX: M85.89 Other specified disorders of bone density and structure, multiple sites (principal)
CPT/HCPCS: 77080

== ENCOUNTER → 2024-05-08 | Outpatient (CLI) | payer BC, SELFPAY ==
[2024-05-08 18:06] LABS: Anion Gap 7 (5-15); BUN 13 mg/dL (7-18); BUN/Creat Ratio 19.2 RATIO (10-20); Chloride 107 mmol/L (98-107); Creatinine, Serum 0.68 mg/dL (0.55-1.02); EST Glomerular Filtration Rate 93 mL/min (>60); Est Glom Filt Rate - Afr Amer 113 mL/min (>60); Glucose 90 mg/dL (74-106); Sodium Level 137 mmol/L (136-145)
== END | disposition home or self-care (01) ==
LOC: MFPLAB 14:03
PROVIDERS: PCP Family Medicine; Visit Provider Family Medicine
DX: I10 Essential (primary) hypertension (principal); E55.9 Vitamin D deficiency, unspecified
CPT/HCPCS: 36415; 80048; 82306

== ENCOUNTER → 2024-11-13 | Outpatient (CLI) | payer BC, SELFPAY ==
[2024-11-13 15:41] LABS: Absolute Lymphocyte Count 0.94 X10^3/uL (0.83-4.51); Absolute Neutrophil Count 3.5 X10^3/uL (2.0-7.7); Basophil# 0.03 X10^3/uL; Basophil% 0.6 % (0-1); Eosinophil# 0.05 X10^3/uL; Hematocrit 40.1 % (37-47); Hemoglobin 13.1 g/dL (12.0-15.0); Lymphocyte # 0.94 X10^3/ul (0.83-4.51); Lymphocyte % 19.2 % (19-41); Mean Corp Hgb Conc 32.7 g/dL (32-36); Mean Corpuscular Hgb 30.8 pg (27.0-32.0); Mean Corpuscular Volume 94.4 fL (81-99); Mean Platelet Vol. 10.5 fl (6.2-12.0); Monocyte# 0.38 X10^3/uL; Monocyte% 7.8 % (0-10); NRBC Flagged by Analyzer 0 % (0-5); Neutrophil # 3.49 X10^3/uL (2.7-7.7); Neutrophil % 71.2 % (47-70); Platelet Count 252 K/mm3 (150-450); RBC Distribution Width CV 12.4 % (11.6-14.6); RBC Distribution Width SD 42.6 fl (35.1-43.9); Red Blood Count 4.25 M/mm3 (4.2-5.4); White Blood Count 4.9 K/mm3 (4.4-11.0)
[2024-11-13 15:54] LABS: Vitamin D,25 Hydroxy 39.9 ng/mL
[2024-11-13 16:06] LABS: ALB/GLOB Ratio 1.1 RATIO (0.9-2.4); AST(SGOT) 26 U/L (15-37); Alanine Aminotransfer ALT/SGPT 26 U/L (13-56); Albumin, Serum 3.7 g/dL (3.2-5.0); Alkaline Phosphatase 90 U/L (45-117); Anion Gap 5 (5-15); BUN 11 mg/dL (7-18); BUN/Creat Ratio 16.8 RATIO (10-20); Calcium,Total 9.1 mg/dL (8.5-10.1); Chloride 107 mmol/L (98-107); Creatinine, Serum 0.65 mg/dL (0.55-1.02); EST Glomerular Filtration Rate 97 mL/min (>60); Est Glom Filt Rate - Afr Amer 117 mL/min (>60); Globulin 3.5 g/dL (2.2-4.2); Glucose 82 mg/dL (74-106); Potassium 3.7 mmol/L (3.5-5.1); Protein, Total 7.2 g/dL (6.4-8.2); Sodium Level 139 mmol/L (136-145)
[2024-11-13 17:41] LABS: Microalbumin,Random Urine < 5.0 mg/L (NO RANGE EST.)
== END | disposition home or self-care (01) ==
LOC: MFPLAB 11:29
PROVIDERS: PCP Family Medicine; Referring Provider Specialist; Visit Provider Specialist
DX: Z01.818 Encounter for other preprocedural examination (principal); M17.32 Unilateral post-traumatic osteoarthritis, left knee; M21.162 Varus deformity, not elsewhere classified, left knee; Z01.810 Encounter for preprocedural cardiovascular examination; I10 Essential (primary) hypertension; M85.80 Other specified disorders of bone density and structure, unspecified site; M17.9 Osteoarthritis of knee, unspecified
CPT/HCPCS: 36415; 80053; 82043; 82306; 82570; 84443; 85025

== ENCOUNTER → 2025-09-21 | Outpatient (CLI) | payer BC, SELFPAY ==
--- NOTE | 2025-09-21 13:37 | BI_ITS ---
EXAM: SCRN MAMM (CAD)W/ARTURO BILAT DATE: 09/21/2025 CLINICAL HISTORY: F, Age 65 y/o , SCREENING TECHNIQUE: Procedure Code: [id number] Modality: MG Procedure: SCRN MAMM (CAD)W/ARTURO BILAT COMPARISON: Prior exam(s) were compared FINDINGS: TISSUE DENSITY: The breasts are heterogeneously dense, which may obscure small masses. Bilateral Breast Mammographic Findings: No significant masses, calcifications or other abnormalities are identified. BI/SCRN MAMM (CAD)W/ARTURO BILAT IMPRESSION: No mammographic evidence of malignancy. OVERALL FINAL ASSESSMENT BI-RADS 1: NEGATIVE. RECOMMENDATION: Routine annual follow-up in 1 Year Additional Recommendation none A letter with findings and recommendations will be mailed to the patient. Reading Location: [id number]
== END | disposition home or self-care (01) ==
LOC: OPBI 13:35
PROVIDERS: PCP Family Medicine
DX: Z12.31 Encounter for screening mammogram for malignant neoplasm of breast (principal)
CPT/HCPCS: 77063; 77067